=== PATIENT | female | born 1945 | race Caucasian/White ===

== ENCOUNTER → 2016-04-29 | Outpatient (CLI) | payer BC, MEDICARE ==
[~2016-04-29] MED LIST: ATEN1TAB38 PO; DULO60CA PO; ESCI20TA PO; EST0625T PO; FENT25DI2 TD; GABA-494 PO; LANS15CA21 PO; LIDO5DIS21 TOP; LISI40TA PO; LORA-655 PO; PERCOT PO; TRIA37.561 PO
[2016-04-29 14:40] VITALS: BP 148/67
[2016-04-29 15:10] VITALS: BP 147/71
== END | disposition home or self-care (01) ==
LOC: Rad HDHVI 14:21
PROVIDERS: ATTEND Internal Medicine Cardiovascular Disease
DX: Z01.818 Encounter for other preprocedural examination (principal); I11.0 Hypertensive heart disease with heart failure; I50.9 Heart failure, unspecified; I70.0 Atherosclerosis of aorta; M43.26 Fusion of spine, lumbar region; M19.011 Primary osteoarthritis, right shoulder; E66.8 Other obesity; Z98.84 Bariatric surgery status
CPT/HCPCS: 71020; 93005; G0463

== ENCOUNTER → 2016-12-30 | Outpatient (CLI) | payer OTHER, MEDICARE | END | disposition home or self-care (01) | LOC: Rad HDHVI 12:53 | PROVIDERS: ATTEND Internal Medicine Cardiovascular Disease | DX: I36.1 Nonrheumatic tricuspid (valve) insufficiency (principal); I51.7 Cardiomegaly | CPT/HCPCS: 93306; 93880 ==

== ENCOUNTER → 2018-07-01 | Outpatient (CLI) | payer MEDICARE, BC ==
[~2018-07-01] MED LIST changes: -GABA-494 PO; +GABA100C9 PO; +READI-CAT 2 (BARIUM SULF)(VANILLA SMOOTHIE) 450ML ONE
[2018-07-01 12:00] LABS: Urine Blood Negative /uL (Negative); Urine Specific Gravity 1.017 (1.001-1.035)
[2018-07-01 12:10] LABS: Basophils # (auto) 0.1 uL; Basophils % (auto) 0.5 % (0.0-2.0); Eosinophils # (auto) 0.1 uL; Eosinophils % (auto) 0.5 % (0.0-7.0); Hematocrit 38.1 % (36.0-46.0); Hemoglobin 12.8 g/dL (12.2-16.2); Lymphocytes # (auto) 2.2 uL; Lymphocytes % (auto) 21.2 % (10.0-50.0); Mean Corpuscular Hemoglobin 30.3 pg (28.0-32.0); Mean Corpuscular Hgb Conc. 33.5 g/dL (32.0-36.0); Mean Corpuscular Volume 90.4 fL (80.0-100.0); Monocytes # (auto) 0.6 uL; Monocytes % (auto) 5.3 % (0.0-12.0); Neutrophils # (auto) 7.5 uL; Neutrophils % (auto) 72.5 % (37.0-80.0); Nucleated Red Blood Cells % 0.1 %; Platelet Count (auto) 376 10^3/uL (140-450); Red Blood Cells 4.22 10^6/uL (4.0-5.20); Red Cell Distribution Width 14.1 % (11.8-14.3); White Blood Cell 10.3 10^3/uL (4.4-10.8)
[2018-07-01 12:23] LABS: Albumin 3.6 g/dL (3.4-5.0); Free T4 (Free Thyroxine) 0.87 ng/dL (0.89-1.76); Potassium 4.4 mmol/L (3.5-5.1)
[2018-07-01 12:28] LABS: BUN/Creatinine Ratio 23.1; Bilirubin, Total 0.3 mg/dL (0.2-1.0); Total Protein 7.3 g/dL (6.4-8.2)
== END | disposition home or self-care (01) ==
LOC: Rad HDHVI 08:15
PROVIDERS: ATTEND Internal Medicine Cardiovascular Disease
DX: I08.1 Rheumatic disorders of both mitral and tricuspid valves (principal); K57.30 Diverticulosis of large intestine without perforation or abscess without bleeding; N39.0 Urinary tract infection, site not specified; E03.9 Hypothyroidism, unspecified; E55.9 Vitamin D deficiency, unspecified; D51.9 Vitamin B12 deficiency anemia, unspecified; R06.02 Shortness of breath; I11.0 Hypertensive heart disease with heart failure; I50.9 Heart failure, unspecified; K46.9 Unspecified abdominal hernia without obstruction or gangrene; Z90.49 Acquired absence of other specified parts of digestive tract; Z79.899 Other long term (current) drug therapy
CPT/HCPCS: 36415; 74176; 80053; 80061; 81003; 82306; 82607; 83036; 84439; 84443; 85025; 93306

== ENCOUNTER → 2018-07-08 | Outpatient (CLI) | payer MEDICARE, BC ==
[~2018-07-08] VITALS: Ht 152.4 cm; Wt 97.5 kg
[~2018-07-08] MED LIST changes: +ADENOSINE 82 MG in GIVE UN-DILUTED 0 ML IV ONE; +ADENOSINE 90 MG/30 ML INJ IV ONE; -READI-CAT 2 (BARIUM SULF)(VANILLA SMOOTHIE) 450ML ONE
== END | disposition home or self-care (01) ==
LOC: Rad HDHVI 13:58
PROVIDERS: ATTEND Internal Medicine Cardiovascular Disease
DX: K57.92 Diverticulitis of intestine, part unspecified, without perforation or abscess without bleeding (principal); I11.0 Hypertensive heart disease with heart failure; I50.9 Heart failure, unspecified; R53.83 Other fatigue; R06.02 Shortness of breath; F32.9 Major depressive disorder, single episode, unspecified; E66.01 Morbid (severe) obesity due to excess calories
CPT/HCPCS: 78452; 93005; 96374; 96375; A9500; J0153

== ENCOUNTER → 2018-10-27 | Outpatient (CLI) | payer MEDICARE, BC ==
[~2018-10-27] MED LIST changes: -ADENOSINE 82 MG in GIVE UN-DILUTED 0 ML IV ONE; -ADENOSINE 90 MG/30 ML INJ IV ONE
[2018-10-27 10:00] VITALS: BP 135/61
[2018-10-27 10:23] VITALS: BP 126/57
--- NOTE | 2018-10-27 10:23 | NUR ---
IN FOR PRE-OP CLEARANCE FOR OCCUPLASTIC PROCEDURE AT OUTSIDE FACILITY ON 11/02/18. Pre-Op Discharge Summary: See e-MAR for any medications given for this visit. Pre-op orders received and carried out per MD of EKG, LABS and chest xrays. Patient given a copy of EKG with instructions to GO TO PRE -OP SURGEON for further follow up care.
[2018-10-27 12:04] LABS: Basophils # (auto) 0.1 uL; Basophils % (auto) 0.7 % (0.0-2.0); Eosinophils # (auto) 0.4 uL; Eosinophils % (auto) 3.9 % (0.0-7.0); Hematocrit 40.1 % (36.0-46.0); Hemoglobin 13.3 g/dL (12.2-16.2); Lymphocytes # (auto) 3.2 uL; Lymphocytes % (auto) 32.7 % (10.0-50.0); Mean Corpuscular Hemoglobin 29.9 pg (28.0-32.0); Mean Corpuscular Hgb Conc. 33.1 g/dL (32.0-36.0); Mean Corpuscular Volume 90.5 fL (80.0-100.0); Monocytes # (auto) 0.7 uL; Monocytes % (auto) 7.5 % (0.0-12.0); Neutrophils # (auto) 5.4 uL; Neutrophils % (auto) 55.2 % (37.0-80.0); Platelet Count (auto) 330 10^3/uL (140-450); Red Blood Cells 4.44 10^6/uL (4.0-5.20); Red Cell Distribution Width 13.8 % (11.8-14.3); White Blood Cell 9.7 10^3/uL (4.4-10.8)
[2018-10-27 12:37] LABS: INR 0.95 (0.9-1.15); Partial Thromboplastin Time 20.6 sec (23.64-32.05)
[2018-10-27 12:44] LABS: BUN/Creatinine Ratio 17.1; Calcium 9.4 mg/dL (8.5-10.1); Potassium 4.3 mmol/L (3.5-5.1)
== END | disposition home or self-care (01) ==
LOC: LAB 09:34
PROVIDERS: ATTEND Internal Medicine Cardiovascular Disease
DX: Z01.812 Encounter for preprocedural laboratory examination (principal); D64.9 Anemia, unspecified; R79.1 Abnormal coagulation profile; I11.0 Hypertensive heart disease with heart failure; I50.9 Heart failure, unspecified
CPT/HCPCS: 36415; 80048; 85025; 85610; 85730; 93005; G0463

== ENCOUNTER → 2019-04-17 | Outpatient (CLI) | payer MEDICARE, BC ==
[2019-04-17 16:14] LABS: Basophils # (auto) 0 uL; Basophils % (auto) 0.5 % (0.0-2.0); Eosinophils # (auto) 0.2 uL; Eosinophils % (auto) 2.4 % (0.0-7.0); Hematocrit 38.4 % (36.0-46.0); Hemoglobin 12.5 g/dL (12.2-16.2); Lymphocytes # (auto) 2.5 uL; Lymphocytes % (auto) 26.9 % (10.0-50.0); Mean Corpuscular Hemoglobin 29.8 pg (28.0-32.0); Mean Corpuscular Hgb Conc. 32.6 g/dL (32.0-36.0); Mean Corpuscular Volume 91.2 fL (80.0-100.0); Monocytes # (auto) 0.8 uL; Monocytes % (auto) 8.8 % (0.0-12.0); Neutrophils # (auto) 5.7 uL; Neutrophils % (auto) 61.4 % (37.0-80.0); Platelet Count (auto) 331 10^3/uL (140-450); Red Blood Cells 4.21 10^6/uL (4.0-5.20); Red Cell Distribution Width 13.9 % (11.8-14.3); White Blood Cell 9.3 10^3/uL (4.4-10.8)
[2019-04-17 16:27] LABS: INR 1.02 (0.9-1.15); Partial Thromboplastin Time 26.1 sec (23.64-32.05)
== END | disposition home or self-care (01) ==
LOC: LAB 13:47
PROVIDERS: ATTEND Internal Medicine Cardiovascular Disease
DX: Z01.812 Encounter for preprocedural laboratory examination (principal); D64.9 Anemia, unspecified; R79.1 Abnormal coagulation profile; I10 Essential (primary) hypertension
CPT/HCPCS: 36415; 85025; 85610; 85730

== ENCOUNTER → 2019-07-18 | Outpatient (CLI) | payer MEDICARE, BC | END | disposition home or self-care (01) | LOC: LAB 14:17 | PROVIDERS: ATTEND Internal Medicine Cardiovascular Disease | DX: M32.10 Systemic lupus erythematosus, organ or system involvement unspecified (principal) | CPT/HCPCS: 86225; 86235 ==

== ENCOUNTER → 2019-12-04 | Outpatient (CLI) | payer MEDICARE, BC ==
[~2019-12-04] MED LIST changes: -LISI40TA PO; +LISI40TA11 PO
[2019-12-04 16:11] LABS: Albumin 3.4 g/dL (3.4-5.0); Calcium 9.4 mg/dL (8.5-10.1); Potassium 4.4 mmol/L (3.5-5.1)
[2019-12-04 16:14] LABS: Basophils # (auto) 0 10 ^3/uL (0-0.2); Basophils % (auto) 0.5 % (0.0-2.0); Eosinophils # (auto) 0.3 10 ^3/uL (0-0.8); Hematocrit 35.7 % (36.0-46.0); Hemoglobin 11.8 g/dL (12.2-16.2); Lymphocytes # (auto) 1.9 10 ^3/uL (0.4-5.4); Lymphocytes % (auto) 22.2 % (10.0-50.0); Mean Corpuscular Hemoglobin 30.2 pg (28.0-32.0); Mean Corpuscular Hgb Conc. 33.1 g/dL (32.0-36.0); Mean Corpuscular Volume 91.2 fL (80.0-100.0); Monocytes # (auto) 0.7 10 ^3/uL (0-1.3); Monocytes % (auto) 8.1 % (0.0-12.0); Neutrophils # (auto) 5.7 10 ^3/uL (1.6-8.6); Neutrophils % (auto) 66.2 % (37.0-80.0); Platelet Count (auto) 331 10^3/uL (140-450); Red Blood Cells 3.92 10^6/uL (4.0-5.20); Red Cell Distribution Width 13.9 % (11.8-14.3); White Blood Cell 8.6 10^3/uL (4.4-10.8)
[2019-12-04 16:15] LABS: Bilirubin, Total 0.3 mg/dL (0.2-1.0); Total Protein 7.1 g/dL (6.4-8.2)
== END | disposition home or self-care (01) ==
LOC: LAB 14:28
PROVIDERS: ATTEND Internal Medicine Cardiovascular Disease
DX: M06.9 Rheumatoid arthritis, unspecified (principal)
CPT/HCPCS: 36415; 80053; 85025

== ENCOUNTER → 2020-07-30 | Outpatient (CLI) | payer MEDICARE, BC ==
[~2020-07-30] MED LIST changes: -LANS15CA21 PO; +LANS15CA37 PO
== END | disposition home or self-care (01) ==
LOC: LAB 11:38
PROVIDERS: ATTEND Internal Medicine
DX: N39.0 Urinary tract infection, site not specified (principal)
CPT/HCPCS: 87086

== ENCOUNTER → 2020-09-12 | Outpatient (CLI) | payer MEDICARE, BC ==
[2020-09-12 11:56] LABS: Basophils # (auto) 0 10 ^3/uL (0-0.2); Basophils % (auto) 0.5 % (0.0-2.0); Eosinophils # (auto) 0.3 10 ^3/uL (0-0.8); Eosinophils % (auto) 2.8 % (0.0-7.0); Hematocrit 36.9 % (36.0-46.0); Hemoglobin 12.2 g/dL (12.2-16.2); Lymphocytes # (auto) 2.7 10 ^3/uL (0.4-5.4); Lymphocytes % (auto) 30.5 % (10.0-50.0); Mean Corpuscular Volume 91.1 fL (80.0-100.0); Monocytes # (auto) 0.6 10 ^3/uL (0-1.3); Monocytes % (auto) 6.6 % (0.0-12.0); Neutrophils # (auto) 5.3 10 ^3/uL (1.6-8.6); Neutrophils % (auto) 59.6 % (37.0-80.0); Nucleated Red Blood Cells % 0.1 %; Platelet Count (auto) 292 10^3/uL (140-450); Red Blood Cells 4.05 10^6/uL (4.0-5.20); Red Cell Distribution Width 13.8 % (11.8-14.3); White Blood Cell 8.9 10^3/uL (4.4-10.8)
[2020-09-12 12:02] LABS: Albumin 3.4 g/dL (3.4-5.0); Calcium 9.2 mg/dL (8.5-10.1); Potassium 4.1 mmol/L (3.5-5.1)
[2020-09-12 12:06] LABS: Urine Blood Negative /uL (Negative); Urine Specific Gravity 1.017 (1.001-1.035)
[2020-09-12 12:07] LABS: BUN/Creatinine Ratio 26.2; Bilirubin, Total 0.5 mg/dL (0.2-1.0)
[2020-09-12 12:20] LABS: Free T4 (Free Thyroxine) 1.03 ng/dL (0.89-1.76)
== END | disposition home or self-care (01) ==
LOC: CHF HDHVI 08:01
PROVIDERS: ATTEND Internal Medicine Cardiovascular Disease
DX: D51.3 Other dietary vitamin B12 deficiency anemia (principal); I10 Essential (primary) hypertension; E11.9 Type 2 diabetes mellitus without complications; E55.9 Vitamin D deficiency, unspecified; D64.9 Anemia, unspecified; R00.2 Palpitations; R53.1 Weakness; R30.0 Dysuria
CPT/HCPCS: 36415; 80053; 80061; 81003; 82306; 82607; 83036; 84439; 84443; 85025; 85049

== ENCOUNTER → 2020-09-16 | Outpatient (CLI) | payer MEDICARE, BC | END | disposition home or self-care (01) | LOC: Rad HDHVI 15:19 | PROVIDERS: ATTEND Internal Medicine Cardiovascular Disease | DX: I11.9 Hypertensive heart disease without heart failure (principal) | CPT/HCPCS: 93306 ==

== ENCOUNTER → 2020-09-23 | Outpatient (CLI) | payer MEDICARE, BC ==
[~2020-09-23] VITALS: Ht 152.4 cm; Wt 93.9 kg
[~2020-09-23] MED LIST changes: +ADENOSINE 79 MG in GIVE UN-DILUTED 0 ML IV ONE; +ADENOSINE 90 MG/30 ML INJ IV ONE
== END | disposition home or self-care (01) ==
LOC: Rad HDHVI 13:52
PROVIDERS: ATTEND Internal Medicine Cardiovascular Disease
DX: Z01.810 Encounter for preprocedural cardiovascular examination (principal); I10 Essential (primary) hypertension; E78.5 Hyperlipidemia, unspecified; J44.9 Chronic obstructive pulmonary disease, unspecified
CPT/HCPCS: 78452; 93005; 96374; 96375; A9500; J0153

== ENCOUNTER → 2020-09-27 | Outpatient (CLI) | payer MEDICARE, BC ==
[~2020-09-27] MED LIST changes: -ADENOSINE 79 MG in GIVE UN-DILUTED 0 ML IV ONE; -ADENOSINE 90 MG/30 ML INJ IV ONE
== END | disposition home or self-care (01) ==
LOC: Rad HDHVI 14:53
PROVIDERS: ATTEND Internal Medicine Cardiovascular Disease
DX: I10 Essential (primary) hypertension (principal); E78.5 Hyperlipidemia, unspecified
CPT/HCPCS: 93880

== ENCOUNTER → 2021-03-10 | Outpatient (CLI) | payer MEDICARE, BC | END | disposition home or self-care (01) | LOC: Rad HDHVI 14:12 | PROVIDERS: ATTEND Internal Medicine Cardiovascular Disease | DX: M47.815 Spondylosis without myelopathy or radiculopathy, thoracolumbar region (principal); M48.07 Spinal stenosis, lumbosacral region; M43.26 Fusion of spine, lumbar region; M48.8X7 Other specified spondylopathies, lumbosacral region; M43.17 Spondylolisthesis, lumbosacral region; M12.88 Other specific arthropathies, not elsewhere classified, other specified site | CPT/HCPCS: 72131 ==

== ENCOUNTER → 2021-04-07 | Outpatient (CLI) | payer MEDICARE, BC ==
[2021-04-07 11:08] LABS: Basophils # (auto) 0.1 10 ^3/uL (0-0.2); Eosinophils # (auto) 0.3 10 ^3/uL (0-0.8); Eosinophils % (auto) 3.3 % (0.0-7.0); Hemoglobin 13.5 g/dL (12.2-16.2); Lymphocytes # (auto) 2.2 10 ^3/uL (0.4-5.4); Mean Corpuscular Hemoglobin 30.1 pg (28.0-32.0); Mean Corpuscular Hgb Conc. 32.9 g/dL (32.0-36.0); Mean Corpuscular Volume 91.7 fL (80.0-100.0); Monocytes # (auto) 0.8 10 ^3/uL (0-1.3); Monocytes % (auto) 8.1 % (0.0-12.0); Neutrophils # (auto) 5.9 10 ^3/uL (1.6-8.6); Neutrophils % (auto) 63.6 % (37.0-80.0); Red Blood Cells 4.47 10^6/uL (4.0-5.20); Red Cell Distribution Width 13.6 % (11.8-14.3); White Blood Cell 9.3 10^3/uL (4.4-10.8)
[2021-04-07 11:09] LABS: Urine Blood Negative /uL (Negative); Urine Specific Gravity 1.012 (1.001-1.035)
[2021-04-07 11:19] LABS: Albumin 3.4 g/dL (3.4-5.0); Calcium 9.5 mg/dL (8.5-10.1)
[2021-04-07 11:30] LABS: BUN/Creatinine Ratio 18.1; Bilirubin, Total 0.4 mg/dL (0.2-1.0); Total Protein 7.4 g/dL (6.4-8.2)
== END | disposition home or self-care (01) ==
LOC: LAB 09:02
PROVIDERS: ATTEND Internal Medicine Cardiovascular Disease
DX: E11.9 Type 2 diabetes mellitus without complications (principal); D51.3 Other dietary vitamin B12 deficiency anemia; D64.9 Anemia, unspecified; E55.9 Vitamin D deficiency, unspecified; I10 Essential (primary) hypertension; R00.2 Palpitations; R53.1 Weakness; R30.0 Dysuria
CPT/HCPCS: 36415; 80053; 80061; 81003; 82306; 82607; 83036; 84439; 84443; 85025

== ENCOUNTER → 2021-10-06 | Outpatient (CLI) | payer MEDICARE, BC ==
[~2021-10-06] MED LIST changes: +READI-CAT 2 (BARIUM SULF)(VANILLA SMOOTHIE) 450ML ONE
== END | disposition home or self-care (01) ==
LOC: Rad HDHVI 10:07
PROVIDERS: ATTEND Internal Medicine Cardiovascular Disease
DX: R07.89 Other chest pain (principal)
CPT/HCPCS: 93880

== ENCOUNTER → 2021-11-04 | Outpatient (CLI) | payer MEDICARE, BC ==
[~2021-11-04] MED LIST changes: -READI-CAT 2 (BARIUM SULF)(VANILLA SMOOTHIE) 450ML ONE
== END | disposition home or self-care (01) ==
LOC: Rad HDHVI 08:19
PROVIDERS: ATTEND Internal Medicine Cardiovascular Disease
DX: I34.0 Nonrheumatic mitral (valve) insufficiency (principal); I10 Essential (primary) hypertension; R42 Dizziness and giddiness
CPT/HCPCS: 93306

== ENCOUNTER → 2022-12-11 | Outpatient (CLI) | payer BC, MEDICARE, OTHER ==
[~2022-12-11] MED LIST changes: -DULO60CA PO; +DULO60CA41 PO; +GABA-1308 PO; -GABA100C9 PO; -LISI40TA11 PO; +LISI40TA16 PO
== END | disposition home or self-care (01) ==
LOC: Rad HDHVI 10:06
PROVIDERS: ATTEND Internal Medicine Cardiovascular Disease
DX: M51.36 Other intervertebral disc degeneration, lumbar region (principal); M48.061 Spinal stenosis, lumbar region without neurogenic claudication; M85.88 Other specified disorders of bone density and structure, other site; R06.02 Shortness of breath; I10 Essential (primary) hypertension; Z96.652 Presence of left artificial knee joint
CPT/HCPCS: 72131; 73562; 93306

== ENCOUNTER → 2022-12-14 | Outpatient (CLI) | payer OTHER ==
[~2022-12-14] VITALS: Ht 152.4 cm; Wt 95.3 kg
[~2022-12-14] MED LIST changes: +ADENOSINE 80 MG in GIVE UN-DILUTED 0 ML IV ONE; +ADENOSINE 90 MG/30 ML INJ IV ONE
== END | disposition home or self-care (01) ==
LOC: Rad HDHVI 14:13
PROVIDERS: ATTEND Internal Medicine Cardiovascular Disease
DX: R06.02 Shortness of breath (principal); I10 Essential (primary) hypertension; E78.00 Pure hypercholesterolemia, unspecified; Z82.49 Family history of ischemic heart disease and other diseases of the circulatory system
CPT/HCPCS: 78452; 93005; 96374; 96375; A9500; J0153

== ENCOUNTER → 2023-02-01 | Outpatient (CLI) | payer OTHER ==
[~2023-02-01] MED LIST changes: -ADENOSINE 80 MG in GIVE UN-DILUTED 0 ML IV ONE; -ADENOSINE 90 MG/30 ML INJ IV ONE
== END | disposition home or self-care (01) ==
LOC: Rad HDHVI 15:59
PROVIDERS: ATTEND Internal Medicine Cardiovascular Disease
DX: I10 Essential (primary) hypertension (principal)
CPT/HCPCS: 93880

== ENCOUNTER 2024-01-04 04:35 | Inpatient (IN) | payer MEDICARE, OTHER ==
[~2024-01-04] VITALS: Ht 152.4 cm; Wt 62.9 kg
--- NOTE | 2024-01-04 06:33 | ED.PDOC ---
Musculoskeletal HPI Comments 78 year old with hx of RA and anxiety presents for pain control PCP: Dr. Thompson Sees pain management with no improvement. Tried Percocet and fentanyl with no improvement Pain is located to bilateral shoulders. reports hx of OA. Also c/o of left knee pain Had both knees replaced 2012. Pain rated as severe Denies trauma to the knee or recent fall Denies skin color changes around the knee Denies masses around the knee Denies popping/locking/giving out of the knee Denies fever chills night sweats nausea vomiting Denies previous surgeries to the knee nor significant injury RAFY WESTON Sold: 01/01/2024 Filled: 01/01/2024 LORAZEPAM Refill 2 of 2 1 MG TAB Days: 30 Qty: 90 Daily: N/A Total: N/A JAYSON SOLORZANO THU: [id number] [facility] Pharmacy #: [id number] Serialized Rx: NOT REPORTED Pharmacy Rx: [id number] RAFY WESTON Sold: 12/17/2023 Filled: 12/17/2023 OXYCODONE HYDROCHLORIDE, ACETAMINOPHEN Refill 0 of 0 10-325 MG TAB Days: 30 Qty: 120 Daily: 60.0 Total: 1800.0 VIRA COREA NP THU: [id number] [facility] Pharmacy #: [id number] Serialized Rx: NOT REPORTED Pharmacy Rx: [id number] Chief Complaint: Lower Extremity Time Seen by MD: 06:22 Primary Care Provider: JAYSON Reviewed Notes: Nurses Notes, Medications, Allergies Allergies: Coded Allergies: NO KNOWN ALLERGIES (Unverified , 07/03/12) Home Meds Reported Medications Gabapentin (Gabapentin) 100 Mg Cap, 1 CAP PO TID, #90 CAP 2 Refills 02/08/16 Duloxetine Hcl (Cymbalta) 60 Mg Cap, 1 CAP PO DAILY, #90 CAP 3 Refills 02/08/16 Escitalopram Oxalate (Lexapro) 20 Mg Tab, 1 TAB PO DAILY, #90 TAB 3 Refills 02/08/16 Lansoprazole (Prevacid) 15 Mg Cap, 30 MG PO DAILY, CAP 02/08/16 Lorazepam (Ativan) 0.5 Mg Tab, 1 MG PO TID, TAB 02/08/16 Hydrochlorothiazide W/Triamter (Dyazide) 1 Cap Cap, 25 CAP PO DAILY, #30 CAP 3 Refills 02/08/16 Lisinopril (Lisinopril) 40 Mg Tab, 1 TAB PO DAILY, #30 TAB 5 Refills 02/08/16 Lidocaine (LIDODERM 5% TOPICAL PATCH) 1 Patch Ph, 1 PATCH TOP DAILY, #30 PATCH 1 Refill 02/07/16 Fentanyl (Fentanyl) 25 Mcg/Hr Dis, 25 MCG TD Q72 PRN for MILD PAIN OR TEMP>100.4, DIS 02/07/16 Estrogens, Conjugated (PREMARIN TABLET) 0.625 Mg Tb, 1 TAB PO DAILY, #30 TAB 11 Refills 02/06/16 Lansoprazole (Prevacid) 15 Mg Cap, 30 MG PO DAILY, CAP 02/06/16 Oxycodone W/ Acetaminophen (Percocet 5/325MG) 1 Tab Tb, 2 TAB PO Q6HP PRN for MILD PAIN OR TEMP>100.4, #120 TAB 02/06/16 Atenolol (Tenormin) 25 Mg Tb, 1 TAB PO DAILY 07/03/12 Information Source: Patient Mode of Arrival: Wheelchair Past Medical History PAST MEDICAL HISTORY: Anxiety, Arthritis, Depression, GERD, HTN, Thyroid [employer]ET [employer]AND[employer] History: No Pertinent CABINET [employer]AND[employer]ER History Family History Family History: Unobtainable Social History Smoker: Non-Smoker Alcohol: Rarely Drugs: Denies Drug Use Lives In: Home All Other Systems: Reviewed and Negative (Per HPI) Physical Exam General Appearance: No Apparent Distress, Normal HEENT: Normal ENT Inspection, Pharynx Normal, TMs Normal Neck: Full Range of Motion, Non-Tender, Normal, Normal Inspection Respiratory: Chest Non-Tender, Lungs Clear, No Accessory Muscle Use, No Respiratory Distress, Normal Breath Sounds Cardiovascular: No Edema, No JVD, No Murmur, No Gallop, Normal Peripheral Pulses, Regular Rate/Rhythm Breast Exam: Deferred Gastrointestinal: No Organomegaly, Non Tender, No Pulsatile Mass, Normal Bowel Sounds, Soft Genitalia: Deferred Pelvic: Deferred Rectal: Deferred Extremities: No calf tenderness, Normal capillary refill, Normal inspection, Normal range of motion, Non-tender, No pedal edema Musculoskeletal : Apperance: Normal Neurologic: Alert, glost tile sorter II-XII nml as Tested, No Motor Deficits, Normal Affect, Normal Mood, No Sensory Deficits Cerebellar Function: Normal Reflexes: Normal Skin: Dry, Normal Color, Warm Lymphatic: No Adenopathy Was a procedure done? Was a procedure done?: No Differential Diagnosis EXT Differential Diagnosis: Sprain, Dislocation, Arthritis, Other X-Ray, Labs, Meds, VS Vital Signs Date Time Temp Pulse Resp B/P (MAP) Pulse Ox O2 Delivery O2 Flow Rate FiO2 01/04/24 06:29 98.3 84 18 122/61 (81) 98 98.3 01/04/24 06:29 84 18 98 Room Air 01/04/24 04:50 98.1 89 18 125/59 (81) 97 Lab Test 01/04/24 07:13 01/04/24 06:40 Range/Units White Blood Count 13.6 H 4.4-10.8 10^3/uL Red Blood Count 4.66 4.0-5.20 10^6/uL Hemoglobin 14.2 12.2-16.2 g/dL Hematocrit 42.7 36.0-46.0 % Mean Corpuscular Volume 91.6 80.0-100.0 fL Mean Corpuscular Hemoglobin 30.4 28.0-32.0 pg Mean Corpuscular Hemoglobin Concent 33.2 32.0-36.0 g/dL Red Cell Distribution Width 14.4 H 11.8-14.3 % Platelet Count 407 140-450 10^3/uL Mean Platelet Volume 8.2 6.9-10.8 fL Neutrophils (%) (Auto) 64.4 37.0-80.0 % Lymphocytes (%) (Auto) 26.7 10.0-50.0 % Monocytes (%) (Auto) 6.9 0.0-12.0 % Eosinophils (%) (Auto) 1.7 0.0-7.0 % Basophils (%) (Auto) 0.3 0.0-2.0 % Neutrophils # (Auto) 8.7 H 1.6-8.6 10 ^3/uL Lymphocytes # (Auto) 3.6 0.4-5.4 10 ^3/uL Monocytes # (Auto) 0.9 0-1.3 10 ^3/uL Eosinophils # (Auto) 0.2 0-0.8 10 ^3/uL Basophils # (Auto) 0 0-0.2 10 ^3/uL Nucleated Red Blood Cells 0.1 % Sodium Level 134 L 136-145 mmol/L Potassium Level 4.4 3.5-5.1 mmol/L Chloride Level 102 98-107 mmol/L Carbon Dioxide Level 25 20-31 mmol/L Anion Gap 7 5-15 Blood Urea Nitrogen 24 H 9-23 mg/dL Creatinine 1.11 H 0.550-1.02 mg/dL Glomerular Filtration Rate Calc 51 >90 mL/min BUN/Creatinine Ratio 21.6 H 10.0-20.0 Serum Glucose 108 H 74-106 mg/dL Calcium Level 10.3 8.7-10.4 mg/dL Urine Color Colorless Yellow Urine Clarity Clear Clear Urine pH 5.0 5.0-9.0 Urine Specific Reynolds 1.009 1.001-1.035 Urine Protein Negative Negative Urine Ketones Negative Negative Urine Blood Negative Negative /uL Urine Nitrite Negative Negative Urine Bilirubin Negative Negative Urine Urobilinogen Normal Negative mg/dL Urine Leukocyte Esterase Negative Negative /uL Urine RBC 1 0 - 4 /hpf Urine WBC 2 0 - 5 /hpf Urine Squamous Epithelial Cells Few <5 /hpf Urine Bacteria None seen None Seen /hpf Urine Hyaline Casts Few 0 - 2 /lpf Urine Glucose Normal Normal mg/dL PATIENT: WESTON HILLMAN SACCT: [id number]: [id number] : 1945 LOC: ER ROOM / BED: / AGE / SEX: 78 / F ADM STATUS: REG ER SERVICE 0640 ORDERING PHYSICIAN: SRIDEVI EDMOND NP PROCEDURE(s): LKNE3 - L KNEE 3V XRAY REASON: Pain ORDER NUMBER(s): [id number], ACCESSION NUMBER(s): [id number] LEFT KNEE RADIOGRAPHS CLINICAL HISTORY: Pain Left knee joint pain TECHNIQUE: AP, lateral, oblique and sunrise views of the left knee. Comparison: XY L KNEE 3V XRAY on DOS: 12/11/22 FINDINGS: There is left knee arthroplasty. The tibial and femoral hardware components appear intact without evidence of hardware loosening. The alignment is anatomic. Soft tissues appear within normal limits. IMPRESSION: 1. Uncomplicated appearance of left knee arthroplasty. HS:Y ATED BY: CAL FRANKLIN MD DICTATED DATE/TIME: 01/04/24755 SIGNED BY: CAL FRANKLIN MD SIGNED DATE/TIME: 01/04/24755 CC: PATIENT: WESTON HILLMAN ACCT: [id number] UNIT: [id number] : 1945 LOC: ER ROOM / BED: / AGE / SEX: 78 / F ADM STATUS: REG ER SERVICE 7 ORDERING PHYSICIAN: SRIDEVI EDMOND NP PROCEDURE(s): LSHD2 - L SHOULDER 2+ VIEW XRAY REASON: Pain ORDER NUMBER(s): [id number], ACCESSION NUMBER(s): [id number] Right SHOULDER RADIOGRAPHS CLINICAL HISTORY: Pain RightLeft shoulder joint pain. TECHNIQUE: AP, lateral and oblique views of the right shoulder were obtained. COMPARISON: None FINDINGS/IMPRESSION: 1. There is no evidence of an acute fracture or dislocation. The alignment is anatomic. There are advanced left glenohumeral joint degenerative changes with joint space loss and marginal osteophytosis. The visualized right lung is clear. The soft tissues appear within normal limits.. HS:Y ATED BY: CAL FRANKLIN MD DICTATED DATE/TIME: 01/04/24754 SIGNED BY: CAL FRANKLIN MD SIGNED DATE/TIME: 01/04/24754 PATIENT: WESTON HILLMAN ACCT: [id number] UNIT: [id number] : 1945 LOC: ER ROOM / BED: / AGE / SEX: 78 / F ADM STATUS: REG ER SERVICE 7 ORDERING PHYSICIAN: SRIDEVI EDMOND RUNNER OUT PROCEDURE(s): RKN3 - R KNEE 3V XRAY REASON: Pain ORDER NUMBER(s): [id number], ACCESSION NUMBER(s): [id number] PROCEDURE: Right knee radiographs. INDICATION: 78 years old, Female; Pain.. TECHNIQUE: 3 views of the right knee were obtained. COMPARISON: None. FINDINGS: There is a total knee replacement, the components of which are well aligned and well seated. No periprosthetic fracture or periprosthetic lucency. No significant joint effusion or significant soft tissue swelling. IMPRESSION: 1. Status post total knee replacement in satisfactory alignment without evidence of hardware complication or fracture. ATED BY: ELMER NORRIS MD DICTATED DATE/TIME: 01/04/24755 SIGNED BY: ELMER NORRIS MD SIGNED DATE/TIME: 01/04/24755 CC: X-Ray, Labs, Meds, VS Comment We will consult the hospitalist for admission due to intractable pain. Time of 1ST Reevaluation: 08:28 Reevaluation 1ST: Improved Patient Education/Counseling: Diagnosis, Treatment Family Education/Counseling: Diagnosis, Treatment Departure 1 Departure Time of Disposition: 08:31 Impression: Primary Impression: Chronic pain syndrome Additional Impression: ELIJAH (acute kidney injury) Disposition: 09 ADMITTED INPATIENT Condition: Fair Critical Care Note Critical Care Time?: No Stability Stability form required: No Heart Score Heart Score: Heart Score Response (Comments) Value History N/A 0 EKG N/A 0 Age N/A 0 Risk Factors N/A 0 Troponin N/A 0 Total 0 SRIDEVI EDMOND NP Jan 04, 2024 06:33
[2024-01-04 07:18] LABS: Urine Bacteria None Seen /hpf (None Seen)
[2024-01-04 07:38] LABS: Basophils # (auto) 0 10 ^3/uL (0-0.2); Basophils % (auto) 0.3 % (0.0-2.0); Eosinophils # (auto) 0.2 10 ^3/uL (0-0.8); Eosinophils % (auto) 1.7 % (0.0-7.0); Hematocrit 42.7 % (36.0-46.0); Hemoglobin 14.2 g/dL (12.2-16.2); Lymphocytes # (auto) 3.6 10 ^3/uL (0.4-5.4); Lymphocytes % (auto) 26.7 % (10.0-50.0); Mean Corpuscular Hemoglobin 30.4 pg (28.0-32.0); Mean Corpuscular Hgb Conc. 33.2 g/dL (32.0-36.0); Mean Corpuscular Volume 91.6 fL (80.0-100.0); Monocytes # (auto) 0.9 10 ^3/uL (0-1.3); Monocytes % (auto) 6.9 % (0.0-12.0); Neutrophils # (auto) 8.7 10 ^3/uL (1.6-8.6); Neutrophils % (auto) 64.4 % (37.0-80.0); Nucleated Red Blood Cells % 0.1 %; Platelet Count (auto) 407 10^3/uL (140-450); Red Blood Cells 4.66 10^6/uL (4.0-5.20); Red Cell Distribution Width 14.4 % (11.8-14.3); White Blood Cell 13.6 10^3/uL (4.4-10.8)
[2024-01-04 07:43] LABS: Chloride 102 mmol/L (98-107); Potassium 4.4 mmol/L (3.5-5.1); Sodium 134 mmol/L (136-145)
[2024-01-04 07:44] LABS: Anion Gap 7 (5-15); Calcium 10.3 mg/dL (8.7-10.4); Carbon Dioxide 25 mmol/L (20-31)
[2024-01-04 07:49] LABS: BUN/Creatinine Ratio 21.6 (10.0-20.0); Blood Urea Nitrogen 24 mg/dL (9-23); Glucose 108 mg/dL (74-106)
[2024-01-04 07:50] LABS: Urine Blood Negative /uL (Negative); Urine Clarity Clear (Clear); Urine Color Colorless (Yellow); Urine Hyaline Cast FEW /lpf (0 - 2); Urine Protein, UAD Negative (Negative); Urine Specific Gravity 1.009 (1.001-1.035); Urine Urobilinogen Normal (Negative); Urine WBC 2 /hpf (0 - 5)
--- NOTE | 2024-01-04 07:57 | DVH ---
Right SHOULDER RADIOGRAPHS CLINICAL HISTORY: Pain RightLeft shoulder joint pain. TECHNIQUE: AP, lateral and oblique views of the right shoulder were obtained. COMPARISON: None FINDINGS/IMPRESSION: 1. There is no evidence of an acute fracture or dislocation. The alignment is anatomic. There are adv anced left glenohumeral joint degenerative changes with joint space loss and marginal osteophytosis. The visualized right lung is clear. The soft tissues appear within normal limits.. HS:Y
--- NOTE | 2024-01-04 07:57 | DVH ---
LEFT KNEE RADIOGRAPHS CLINICAL HISTORY: Pain Left knee joint pain TECHNIQUE: AP, lateral, oblique and sunrise views of the left knee. Comparison: XY L KNEE 3V XRAY on DOS: 12/11/22 FINDINGS: There is left knee arthroplasty. The tibial and femoral hardware components appear intact without heath dence of hardware loosening. The alignment is anatomic. Soft tissues appear within normal limits. IMPRESSION: 1. Uncomplicated appearance of left knee arthroplasty. HS:Y
--- NOTE | 2024-01-04 07:58 | DVH ---
PROCEDURE: Right knee radiographs. INDICATION: 78 years old, Female; Pain.. TECHNIQUE: 3 views of the right knee were obtained. COMPARISON: None. FINDINGS: There is a total knee replacement, the components of which are well aligned and well seated . No periprosthetic fracture or periprosthetic lucency. No significant joint effusion or significant soft tissue swelling. IMPRESSION: 1. Status post total knee replacement in satisfactory alignment without evidence of hardware complica tion or fracture.
[2024-01-04] MEDS: HYDROcodone-ACET 5/325MG TAB PO ONE (09:19)
--- NOTE | 2024-01-04 09:44 | DVHHP2 ---
Admitting Diagnosis: Chronic pain History of Present Illness 78 year old female patient with hx of RA and anxiety c/o uncontrolled pain. Patient has chronic pain. Patient was seeing pain management but she states her pain medication was not working and that she sought treatment in the emergency room. They did a harry scan on her and had no acute findings. Will observe overnight for 24 hours. Will continue with pain medication. Plan is for discharge tomorrow. While in the emergency department the patient was evaluated by the provider, As per provider: Labs, vital signs, and imagining monitored. Patient will be admitted for further evaluation and treatment. I discussed admission with the patient/family and is in agreement to treatment plan Patient Family History: Patient reports no known family medical history. Allergies: Coded Allergies: NO KNOWN ALLERGIES (Unverified , 07/03/12) Home Meds Reported Medications Gabapentin (Gabapentin) 100 Mg Cap, 1 CAP PO TID, #90 CAP 2 Refills 02/08/16 Duloxetine Hcl (Cymbalta) 60 Mg Cap, 1 CAP PO DAILY, #90 CAP 3 Refills 02/08/16 Escitalopram Oxalate (Lexapro) 20 Mg Tab, 1 TAB PO DAILY, #90 TAB 3 Refills 02/08/16 Lansoprazole (Prevacid) 15 Mg Cap, 30 MG PO DAILY, CAP 16 Lorazepam (Ativan) 0.5 Mg Tab, 1 MG PO TID, TAB 02/08/16 Hydrochlorothiazide W/Triamter (Dyazide) 1 Cap Cap, 25 CAP PO DAILY, #30 CAP 3 Refills 02/08/16 Lisinopril (Lisinopril) 40 Mg Tab, 1 TAB PO DAILY, #30 TAB 5 Refills 02/08/16 Lidocaine (LIDODERM 5% TOPICAL PATCH) 1 Patch Ph, 1 PATCH TOP DAILY, #30 PATCH 1 Refill 02/07/16 Fentanyl (Fentanyl) 25 Mcg/Hr Dis, 25 MCG TD Q72 PRN for MILD PAIN OR TEMP >100.4, DIS 02/07/16 Estrogens, Conjugated (PREMARIN TABLET) 0.625 Mg Tb, 1 TAB PO DAILY, #30 TAB 11 Refills 02/06/16 Lansoprazole (Prevacid) 15 Mg Cap, 30 MG PO DAILY, CAP 02/06/16 Oxycodone W/ Acetaminophen (Percocet 5/325MG) 1 Tab Tb, 2 TAB PO Q6HP PRN for MILD PAIN OR TEMP>100.4, #120 TAB 02/06/16 Atenolol (Tenormin) 25 Mg Tb, 1 TAB PO DAILY 07/03/12 Current Medications Current Medications Medications (Trade) Dose Ordered Sig/Timoteo Route PRN Reason Start Time Stop Time Status Last Admin Acetaminophen/ Hydrocodone Bitart ([place] 5/325MG Tab) 1 tab Q4HP PRN PO MODERATE PAIN (4-6 PAIN SCALE) 01/04/24 09:45 01/04/24 09:55 DC Temazepam (Restoril) 15 mg QHSP PRN PO FOR INSOMNIA 01/04/24 09:45 01/04/24 09:55 DC Ondansetron HCl (Zofran) 4 mg Q4HP PRN IV NAUSEA / VOMITING 01/04/24 09:45 01/04/24 09:55 DC Enoxaparin Sodium (Lovenox) 40 mg DAILY SC 01/04/24 10:00 01/04/24 09:55 DC Morphine Sulfate 2 mg Q4HPRN PRN IV SEVERE PAIN (7-10 PAIN SCALE) 01/04/24 09:45 01/04/24 09:55 DC Nitroglycerin (Ntrostat Sublingual) 0.4 mg Q5MINP PRN SL FOR CHEST PAIN 01/04/24 09:45 01/04/24 09:55 DC Morphine Sulfate 2 mg Q30M PRN IV FOR CHEST PAIN 01/04/24 09:45 01/04/24 09:55 DC Famotidine (Pepcid Tablet) 40 mg DAILY PO 01/04/24 10:00 01/04/24 09:55 DC Ketorolac Tromethamine (Toradol Injection) 30 mg Q6HR IV 01/04/24 12:00 01/04/24 09:55 DC Ondansetron HCl (Zofran) 4 mg Q4HP PRN IV NAUSEA / VOMITING 01/04/24 10:00 Enoxaparin Sodium (Lovenox) 40 mg DAILY SC 01/04/24 10:15 Morphine Sulfate 2 mg Q4HPRN PRN IV SEVERE PAIN (7-10 PAIN SCALE) 01/04/24 10:00 Morphine Sulfate 2 mg Q30M PRN IV FOR CHEST PAIN 01/04/24 10:00 Ketorolac Tromethamine (Toradol Injection) 15 mg Q6HR IV 01/04/24 12:00 01/05/24 18:01 01/04/24 18:06 Acetaminophen/ Hydrocodone Bitart ([place] 5/325MG Tab) 1 tab Q4HP PRN PO MODERATE PAIN (4-6 PAIN SCALE) 01/04/24 10:00 Temazepam (Restoril) 15 mg QHSP PRN PO FOR INSOMNIA 01/04/24 10:00 Nitroglycerin (Ntrostat Sublingual) 0.4 mg Q5MINP PRN SL FOR CHEST PAIN 01/04/24 10:00 Famotidine (Pepcid Tablet) 40 mg DAILY PO 01/04/24 10:15 Atenolol (Tenormin Tablet) 25 mg DAILY PO 01/05/24 10:00 Fentanyl (Duragesic 25mcg/ Hr) 25 mcg Q72HR TD 01/04/24 11:30 Gabapentin (Neurontin Capsule) 100 mg TID PO 01/04/24 14:00 01/04/24 14:52 Lorazepam (Ativan Tablet) 1 mg TID PO 01/04/24 14:00 01/04/24 14:52 Duloxetine HCl (Cymbalta Capsule) 60 mg DAILY PO 01/05/24 10:00 Future Hold Patient Own Medication 1 tab DAILY PO 01/05/24 10:00 Future Hold Patient Own Medication 1 tab DAILY PO 01/05/24 10:00 Patient Own Medication 1 cap DAILY PO 01/05/24 10:00 Lisinopril (Zestril Tablet) 40 mg DAILY PO 01/05/24 10:00 Review of Systems Constitutional: denies chills, denies fever, denies malaise Eyes: denies eye pain, denies vision change ENT: denies ear pain, denies headache, denies nasal congestion, denies painful swallowing, denies voice change Cardiovascular: denies chest pain, denies edema, denies orthopnea, denies palpitations, denies paroxysmal nocturnal dyspnea Respiratory: denies cough, denies shortness of breath Gastrointestinal: denies constipation, denies diarrhea, denies nausea, denies vomiting Genitourinary: denies dysuria, denies frequent urination, denies urethral discharge Musculoskeletal: denies back pain, denies joint pain, denies muscle pain Skin: denies bruising, denies itching, denies rash Neurological: denies focal weakness, denies headache, denies sensory changes Psychiatric: denies anxiety, denies depression Endocrine: denies polydipsia, denies polyuria Hematologic/Lymphatic: denies easy bleeding, denies easy bruising, denies enlarged lymph nodes Allergic/Immunologic: denies allergy, denies hives Vital Signs Vital Signs Date Time Temp Pulse Resp B/P (MAP) Pulse Ox O2 Delivery O2 Flow Rate FiO2 01/04/24 16:54 97.6 69 18 119/56 (77) 94 97.6 01/04/24 09:54 Room Air* 0 21 Physical Exam General Appearance: alert, no distress HEENT: EOMI, PERRLA, normal external inspect of ears, no icterus, no nasal drainage Neck: no carotid bruit, no jugular venous distention (JVD), no lymphadenopathy Chest: normal thorax Respiratory: clear to auscultation, normal air movement Cardiovascular: regular rate and rhythm, no diastolic murmur, no jugular venous distention (JVD), no rub, no systolic murmur Abdominal: soft, no hepatomegaly, no mass, no splenomegaly, no tenderness Genitourinary: grossly normal external Musculoskeletal: no joint tenderness, no swelling Extremities: normal pulses, no calf tenderness, no clubbing, no cyanosis, no edema Skin: no bruising, no jaundice, no rash Neurological: alert, No focal deficit Results Labs Test 01/04/24 07:13 01/04/24 06:40 Range/Units White Blood Count 13.6 H 4.4-10.8 10^3/uL Red Blood Count 4.66 4.0-5.20 10^6/uL Hemoglobin 14.2 12.2-16.2 g/dL Hematocrit 42.7 36.0-46.0 % Mean Corpuscular Volume 91.6 80.0-100.0 fL Mean Corpuscular Hemoglobin 30.4 28.0-32.0 pg Mean Corpuscular Hemoglobin Concent 33.2 32.0-36.0 g/dL Red Cell Distribution Width 14.4 H 11.8-14.3 % Platelet Count 407 140-450 10^3/uL Mean Platelet Volume 8.2 6.9-10.8 fL Neutrophils (%) (Auto) 64.4 37.0-80.0 % Lymphocytes (%) (Auto) 26.7 10.0-50.0 % Monocytes (%) (Auto) 6.9 0.0-12.0 % Eosinophils (%) (Auto) 1.7 0.0-7.0 % Basophils (%) (Auto) 0.3 0.0-2.0 % Neutrophils # (Auto) 8.7 H 1.6-8.6 10 ^3/uL Lymphocytes # (Auto) 3.6 0.4-5.4 10 ^3/uL Monocytes # (Auto) 0.9 0-1.3 10 ^3/uL Eosinophils # (Auto) 0.2 0-0.8 10 ^3/uL Basophils # (Auto) 0 0-0.2 10 ^3/uL Nucleated Red Blood Cells 0.1 % Sodium Level 134 L 136-145 mmol/L Potassium Level 4.4 3.5-5.1 mmol/L Chloride Level 102 98-107 mmol/L Carbon Dioxide Level 25 20-31 mmol/L Anion Gap 7 5-15 Blood Urea Nitrogen 24 H 9-23 mg/dL Creatinine 1.11 H 0.550-1.02 mg/dL Glomerular Filtration Rate Calc 51 >90 mL/min BUN/Creatinine Ratio 21.6 H 10.0-20.0 Serum Glucose 108 H 74-106 mg/dL Calcium Level 10.3 8.7-10.4 mg/dL Urine Color Colorless Yellow Urine Clarity Clear Clear Urine pH 5.0 5.0-9.0 Urine Specific [place] 1.009 1.001-1.035 Urine Protein Negative Negative Urine Ketones Negative Negative Urine Blood Negative Negative /uL Urine Nitrite Negative Negative Urine Bilirubin Negative Negative Urine Urobilinogen Normal Negative mg/dL Urine Leukocyte Esterase Negative Negative /uL Urine RBC 1 0 - 4 /hpf Urine WBC 2 0 - 5 /hpf Urine Squamous Epithelial Cells Few <5 /hpf Urine Bacteria None seen None Seen /hpf Urine Hyaline Casts Few 0 - 2 /lpf Urine Glucose Normal Normal mg/dL Plan 1. Benign essential HTN Monitor, continue home meds 2. Morbid Obesity Monitor 3. Anxiety Monitor, anxiolytics 4. Chronic pain syndrome Monitor, IV Toradol, prn pain meds, DC planning Plan discussed with: Patient, Other KARISEBONILIZ Oshea NP Jan 04, 2024 09:44
[2024-01-04] MEDS ORDERED: MORPHINE SULFATE INJ 2 MG/ml SYRG IV PRN ×3 (09:45→10:00)
[2024-01-04] MEDS ORDERED: TEMAZEPAM 15 MG CAP PO PRN ×2 (09:45→10:00)
[2024-01-04] MEDS ORDERED: NITROGLYCERIN 0.4 MG SL TAB SL PRN ×2 (09:45→10:00)
[2024-01-04] MEDS ORDERED: HYDROcodone-ACET 5/325MG TAB PO PRN (09:45)
[2024-01-04] MEDS ORDERED: ONDANSETRON HCL 4 MG/2 ML VIAL IV PRN ×2 (09:45→10:00)
[2024-01-04 09:54] VITALS: PULSE 104; RESP 16; O2SAT 97
[2024-01-04] MEDS ORDERED: ENOXAPARIN SOD 40 MG/0.4 ML SYRINGE SC SCH (10:00)
[2024-01-04] MEDS ORDERED: FAMOTIDINE 20 MG TAB PO SCH (10:00)
[2024-01-04 10:16] VITALS: BP 136/60; PULSE 73; RESP 16; TEMP 97.8; O2SAT 96
[2024-01-04] MEDS ORDERED: fentaNYL 25MCG/HR 25 MCG/HR PAT TD SCH (11:30)
[2024-01-04] MEDS ORDERED: KETOROLAC TROMETH 30 MG/ML 1ML VIAL IV SCH (12:00)
[2024-01-04 12:49] VITALS: BP 121/55; PULSE 78; RESP 18; TEMP 98.2; O2SAT 96
[2024-01-04] MEDS: GABAPENTIN 100 MG CAP PO SCH (14:52)
[2024-01-04] MEDS: LORazepam 0.5 MG TAB PO SCH (14:52)
[2024-01-04] MEDS: KETOROLAC TROMETH 30 MG/ML 1ML VIAL IV SCH (15:00)
[2024-01-04 16:54] VITALS: BP 119/56; PULSE 69; RESP 18; TEMP 97.6; O2SAT 94
[2024-01-04 20:30] VITALS: PULSE 98; RESP 18; O2SAT 96
[2024-01-05] VITALS (8 sets, daily range): BP systolic 94–157; BP diastolic 28–80; PULSE 64–75; RESP 17–20; TEMP 97.4–98.2; O2SAT 91–98
[2024-01-05] MEDS: MORPHINE SULFATE INJ 2 MG/ml SYRG IV PRN (05:05)
[2024-01-05 05:23] LABS: Basophils # (auto) 0.1 10 ^3/uL (0-0.2); Basophils % (auto) 1.3 % (0.0-2.0); Eosinophils # (auto) 0.3 10 ^3/uL (0-0.8); Eosinophils % (auto) 2.7 % (0.0-7.0); Hemoglobin 12.9 g/dL (12.2-16.2); Lymphocytes # (auto) 3.1 10 ^3/uL (0.4-5.4); Lymphocytes % (auto) 32.5 % (10.0-50.0); Mean Corpuscular Hemoglobin 30.3 pg (28.0-32.0); Mean Corpuscular Volume 91.8 fL (80.0-100.0); Monocytes # (auto) 0.7 10 ^3/uL (0-1.3); Monocytes % (auto) 7.4 % (0.0-12.0); Neutrophils # (auto) 5.4 10 ^3/uL (1.6-8.6); Neutrophils % (auto) 56.1 % (37.0-80.0); Nucleated Red Blood Cells % 0.1 %; Platelet Count (auto) 340 10^3/uL (140-450); Red Blood Cells 4.25 10^6/uL (4.0-5.20); Red Cell Distribution Width 13.9 % (11.8-14.3); White Blood Cell 9.7 10^3/uL (4.4-10.8)
[2024-01-05 05:41] LABS: Albumin 3.8 g/dL (3.2-4.8); Alkaline Phosphatase 97 U/L (46-116); Anion Gap 7 (5-15); Aspartate Aminotransferase 12 U/L (13-40); BUN/Creatinine Ratio 25.7 (10.0-20.0); Bilirubin, Total 0.4 mg/dL (0.2-1.0); Blood Urea Nitrogen 26 mg/dL (9-23); Calcium 9.7 mg/dL (8.7-10.4); Carbon Dioxide 27 mmol/L (20-31); Chloride 101 mmol/L (98-107); Glucose 96 mg/dL (74-106); Potassium 4.5 mmol/L (3.5-5.1); Sodium 135 mmol/L (136-145); Total Protein 6.6 g/dL (5.7-8.2)
[2024-01-05 05:53] LABS: Alanine Aminotransferase < 9 U/L (7-40)
[2024-01-05] MEDS ORDERED: Escitalopram Oxalate (Lexapro) 20MG TABLET PO SCH (10:00)
[2024-01-05] MEDS: LISINOPRIL 20 MG TAB PO SCH (10:00)
[2024-01-05] MEDS: HYDROCHLOROTHIAZIDE PO SCH (10:00)
[2024-01-05] MEDS: ESTROGENS CONJUGATED 0.625 MG PO SCH (10:00)
[2024-01-05] MEDS ORDERED: DULoxetine HCL 30 MG CAP PO SCH (10:00)
[2024-01-05] MEDS: TRIAMTER PO SCH (10:00)
[2024-01-05] MEDS: ATENOLOL 25 MG TAB PO SCH (10:21)
[2024-01-05] MEDS: ENOXAPARIN SOD 40 MG/0.4 ML SYRINGE SC SCH (10:22)
[2024-01-05] MEDS: FAMOTIDINE 20 MG TAB PO SCH (10:22)
--- NOTE | 2024-01-05 11:36 | DVHPN2 ---
Progress Note - Dictate Date Seen: Jan 05, 2024 Medical Necessity Reason Pt with a Central, PICC or Fol: No vital signs Vital Sign Date Time Temp Pulse Resp B/P (MAP) Pulse Ox O2 Delivery O2 Flow Rate FiO2 01/05/24 10:21 73 123/54 01/05/24 09:00 98.1 18 98 98.1 01/05/24 08:00 Room Air* 0 21 Total Intake and Output 01/04/24 01/04/24 01/05/24 15:00 23:00 07:00 Intake Total 200 ml Balance 200 ml medications Current Medications Medications Dose Ordered Sig/Timoteo Route Start Time Stop Time Status Last Admin Dose Admin Ondansetron HCl 4 mg Q4HP PRN IV 01/04/24 10:00 Enoxaparin Sodium 40 mg DAILY SC 01/04/24 10:15 01/05/24 10:22 40 MG Morphine Sulfate 2 mg Q4HPRN PRN IV 01/04/24 10:00 01/05/24 05:05 2 MG Morphine Sulfate 2 mg Q30M PRN IV 01/04/24 10:00 Ketorolac Tromethamine 15 mg Q6HR IV 01/04/24 12:00 01/05/24 18:01 01/05/24 00:13 15 MG Acetaminophen/ Hydrocodone Bitart 1 tab Q4HP PRN PO 01/04/24 10:00 Temazepam 15 mg QHSP PRN PO 01/04/24 10:00 Nitroglycerin 0.4 mg Q5MINP PRN SL 01/04/24 10:00 Famotidine 40 mg DAILY PO 01/04/24 10:15 01/05/24 10:22 40 MG Atenolol 25 mg DAILY PO 01/05/24 10:00 01/05/24 10:21 25 MG Fentanyl 25 mcg Q72HR TD 01/04/24 11:30 Gabapentin 100 mg TID PO 01/04/24 14:00 01/05/24 07:04 100 MG Lorazepam 1 mg TID PO 01/04/24 14:00 01/05/24 07:04 1 MG Duloxetine HCl 60 mg DAILY PO 01/05/24 10:00 Hold Patient Own Medication 1 tab DAILY PO 01/05/24 10:00 Hold Patient Own Medication 1 tab DAILY PO 01/05/24 10:00 Patient Own Medication 1 cap DAILY PO 01/05/24 10:00 Lisinopril 40 mg DAILY PO 01/05/24 10:00 objective General Appearance: alert, no distress HEENT: EOMI, PERRLA, normal external inspect of ears, no icterus, no nasal drainage Neck: no carotid bruit, no jugular venous distention (JVD), no lymphadenopathy Chest: normal thorax Respiratory: clear to auscultation, normal air movement Cardiovascular: regular rate and rhythm, no diastolic murmur, no jugular venous distention (JVD), no rub, no systolic murmur Abdominal: soft, no hepatomegaly, no mass, no splenomegaly, no tenderness Genitourinary: grossly normal external Musculoskeletal: no joint tenderness, no swelling Extremities: normal pulses, no calf tenderness, no clubbing, no cyanosis, no edema Skin: no bruising, no jaundice, no rash Neurological: alert, No focal deficit laboratory and microbiology Laboratory Tests 01/05/24 04:57 Test 01/05/24 04:57 Range/Units Serum Glucose 96 74-106 mg/dL Problem List 1. Benign essential HTN Monitor, continue home meds 2. Morbid Obesity Monitor 3. Anxiety Monitor, anxiolytics 4. Chronic pain syndrome Monitor, IV Toradol, prn pain meds, DC planning Assessment/Plan Subjective Patient is awake and alert. Objective Patient has chronic pain as well as chronic back pain and bilateral shoulder pain. Recent imaging on unt[facility] years which shows chronic arthritis as well as her bilateral knees. Patient states she had a bilateral knee replacements with Dr. Burns and in 2012 she had back surgery with . She states she did not heal well from her back surgery. Patient has been reporting increased pain to her left knee. Patient states she was previously told she was not a candidate for shoulder surgery but she is unsure why. Patient's PCP is Dr. Fuchs. Plan Continue pain medication. Consult orthopedic surgeon for reeval of her left knee and bilateral shoulder. Consult PCP Dr. Thompson for input on patient's condition. Repeat labs ordered for a.m.. Plan discussed with: Patient, Other PARVEZEBONI YU Dayo HUTCHINSON Jan 05, 2024 11:36
--- NOTE | 2024-01-05 13:05 | DVHPN2 ---
Progress Note - Dictate Date Seen: Jan 04, 2024 Medical Necessity Reason Pt with a Central, PICC or Fol: No Subjective PT WITH SS COMPLEX HTN OBESITY RA CERVICAL AND LUMBER SPINAL STENOSIS DEGENERATIVE ARTHRITIS OF KNEE NOW WITH SEVERE PAIN INABILITY TO WALK vital signs Vital Sign Date Time Temp Pulse Resp B/P (MAP) Pulse Ox O2 Delivery O2 Flow Rate FiO2 01/05/24 12:44 97.4 75 20 94/28 (50) 97 97.4 01/05/24 08:00 Room Air* 0 21 Total Intake and Output 01/04/24 01/04/24 01/05/24 15:00 23:00 07:00 Intake Total 200 ml Balance 200 ml medications Current Medications Medications Dose Ordered Sig/Timoteo Route Start Time Stop Time Status Last Admin Dose Admin Ondansetron HCl 4 mg Q4HP PRN IV 01/04/24 10:00 Enoxaparin Sodium 40 mg DAILY SC 01/04/24 10:15 01/05/24 10:22 40 MG Morphine Sulfate 2 mg Q4HPRN PRN IV 01/04/24 10:00 01/05/24 05:05 2 MG Morphine Sulfate 2 mg Q30M PRN IV 01/04/24 10:00 Ketorolac Tromethamine 15 mg Q6HR IV 01/04/24 12:00 01/05/24 18:01 01/05/24 00:13 15 MG Acetaminophen/ Hydrocodone Bitart 1 tab Q4HP PRN PO 01/04/24 10:00 Temazepam 15 mg QHSP PRN PO 01/04/24 10:00 Nitroglycerin 0.4 mg Q5MINP PRN SL 01/04/24 10:00 Famotidine 40 mg DAILY PO 01/04/24 10:15 01/05/24 10:22 40 MG Atenolol 25 mg DAILY PO 01/05/24 10:00 01/05/24 10:21 25 MG Fentanyl 25 mcg Q72HR TD 01/04/24 11:30 Gabapentin 100 mg TID PO 01/04/24 14:00 01/05/24 07:04 100 MG Lorazepam 1 mg TID PO 01/04/24 14:00 01/05/24 07:04 1 MG Duloxetine HCl 60 mg DAILY PO 01/05/24 10:00 Hold Patient Own Medication 1 tab DAILY PO 01/05/24 10:00 Hold Patient Own Medication 1 tab DAILY PO 01/05/24 10:00 Patient Own Medication 1 cap DAILY PO 01/05/24 10:00 Lisinopril 40 mg DAILY PO 01/05/24 10:00 objective PUL CLEAR CV RR laboratory and microbiology Laboratory Tests 01/05/24 04:57 Test 01/05/24 04:57 Range/Units Serum Glucose 96 74-106 mg/dL Problem List SS COMPLEX HTN OBESITY RA CERVICAL AND LUMBER SPINAL STENOSIS DEGENERATIVE ARTHRITIS OF KNEE NOW WITH SEVERE PAIN INABILITY TO WALK Assessment/Plan CONSIDER STEROID THERAPY PAIN MANAGEMENT Plan discussed with: Patient JAYSON SOLORZANO MD Jan 05, 2024 13:05
[2024-01-05] MEDS: HYDROcodone-ACET 5/325MG TAB PO PRN (17:56)
[2024-01-05] MEDS: CALCIUM CARB 500 MG CHEW TAB PO SCH (23:12)
[2024-01-06 01:00] VITALS: BP 132/71; PULSE 62; RESP 18; TEMP 98.7; O2SAT 100
[2024-01-06 05:00] VITALS: BP 154/86; PULSE 68; RESP 20; TEMP 98; O2SAT 100
[2024-01-06 09:00] VITALS: BP 125/76; PULSE 90; RESP 15; TEMP 98.3; O2SAT 99
--- NOTE | 2024-01-06 12:33 | DVHPN2 ---
Progress Note - Dictate Date Seen: Jan 05, 2024 Medical Necessity Reason Pt with a Central, PICC or Fol: No Subjective PT WITH SS COMPLEX HTN OBESITY RA CERVICAL AND LUMBER SPINAL STENOSIS DEGENERATIVE ARTHRITIS OF KNEE NOW WITH SEVERE PAIN INABILITY TO WALK vital signs Vital Sign Date Time Temp Pulse Resp B/P (MAP) Pulse Ox O2 Delivery O2 Flow Rate FiO2 01/06/24 09:00 98.3 90 15 125/76 (92) 99 98.3 01/05/24 20:00 Room Air* 0 21 Total Intake and Output 01/05/24 01/05/24 01/06/24 15:00 23:00 07:00 Intake Total 1000 ml 300 ml Balance 1000 ml 300 ml medications Current Medications Medications Dose Ordered Sig/Timoteo Route Start Time Stop Time Status Last Admin Dose Admin Ondansetron HCl 4 mg Q4HP PRN IV 01/04/24 10:00 Enoxaparin Sodium 40 mg DAILY SC 01/04/24 10:15 01/05/24 10:22 40 MG Morphine Sulfate 2 mg Q4HPRN PRN IV 01/04/24 10:00 01/05/24 05:05 2 MG Morphine Sulfate 2 mg Q30M PRN IV 01/04/24 10:00 Acetaminophen/ Hydrocodone Bitart 1 tab Q4HP PRN PO 01/04/24 10:00 01/06/24 05:34 1 TAB Temazepam 15 mg QHSP PRN PO 01/04/24 10:00 Nitroglycerin 0.4 mg Q5MINP PRN SL 01/04/24 10:00 Famotidine 40 mg DAILY PO 01/04/24 10:15 01/05/24 10:22 40 MG Atenolol 25 mg DAILY PO 01/05/24 10:00 01/05/24 10:21 25 MG Fentanyl 25 mcg Q72HR TD 01/04/24 11:30 Gabapentin 100 mg TID PO 01/04/24 14:00 01/06/24 06:54 100 MG Lorazepam 1 mg TID PO 01/04/24 14:00 01/06/24 06:54 1 MG Duloxetine HCl 60 mg DAILY PO 01/05/24 10:00 Hold Patient Own Medication 1 tab DAILY PO 01/05/24 10:00 Hold Patient Own Medication 1 tab DAILY PO 01/05/24 10:00 Patient Own Medication 1 cap DAILY PO 01/05/24 10:00 Lisinopril 40 mg DAILY PO 01/05/24 10:00 Calcium Carbonate 500 mg BID PO 01/05/24 23:00 01/05/24 23:12 500 MG objective PUL CLEAR CV RR laboratory and microbiology Laboratory Tests 01/05/24 04:57 Test 01/05/24 04:57 Range/Units Serum Glucose 96 74-106 mg/dL Problem List SS COMPLEX HTN OBESITY RA CERVICAL AND LUMBER SPINAL STENOSIS DEGENERATIVE ARTHRITIS OF KNEE NOW WITH SEVERE PAIN INABILITY TO WALK Assessment/Plan CONSIDER STEROID THERAPY PAIN MANAGEMENT MRI LEFT KNEE AND SPINE Plan discussed with: Patient JAYSON SOLORZANO MD Jan 06, 2024 12:33
[2024-01-06 13:00] VITALS: BP 136/60; PULSE 68; RESP 15; TEMP 98; O2SAT 98
--- NOTE | 2024-01-06 13:11 | DVHINCON2 ---
Date of service: Jan 06, 2024 Reason for Consultation Bilateral knee and shoulder pain History of Present Illness 78 yo F with BL knee and shoulder pain - no injury or trauma that she can re call. She had an increased of activity recently for a health fit class and likely could have triggered this. Past Medical History list reviewed Past Surgical History list reviewed Family History: FH: hypercholesterolemia Hypercholesterolemia G8 MOTHER Hypertension G8 MOTHER G8 FATHER Allergies: Coded Allergies: NO KNOWN ALLERGIES (Unverified , 07/03/12) Home Meds Reported Medications Gabapentin (Gabapentin) 100 Mg Cap, 1 CAP PO TID, #90 CAP 2 Refills 02/08/16 Duloxetine Hcl (Cymbalta) 60 Mg Cap, 1 CAP PO DAILY, #90 CAP 3 Refills 02/08/16 Escitalopram Oxalate (Lexapro) 20 Mg Tab, 1 TAB PO DAILY, #90 TAB 3 Refills 02/08/16 Lansoprazole (Prevacid) 15 Mg Cap, 30 MG PO DAILY, CAP 02/08/16 Lorazepam (Ativan) 0.5 Mg Tab, 1 MG PO TID, TAB 02/08/16 Hydrochlorothiazide W/Triamter (Dyazide) 1 Cap Cap, 25 CAP PO DAILY, #30 CAP 3 Refills 02/08/16 Lisinopril (Lisinopril) 40 Mg Tab, 1 TAB PO DAILY, #30 TAB 5 Refills 02/08/16 Lidocaine (LIDODERM 5% TOPICAL PATCH) 1 Patch Ph, 1 PATCH TOP DAILY, #30 PATCH 1 Refill 02/07/16 Fentanyl (Fentanyl) 25 Mcg/Hr Dis, 25 MCG TD Q72 PRN for MILD PAIN OR TEM P>100.4, DIS 02/07/16 Estrogens, Conjugated (PREMARIN TABLET) 0.625 Mg Tb, 1 TAB PO DAILY, #30 TAB 11 Refills 02/06/16 Lansoprazole (Prevacid) 15 Mg Cap, 30 MG PO DAILY, CAP 02/06/16 Oxycodone W/ Acetaminophen (Percocet 5/325MG) 1 Tab Tb, 2 TAB PO Q6HP PRN for MILD PAIN OR TEMP>100.4, #120 TAB 02/06/16 Atenolol (Tenormin) 25 Mg Tb, 1 TAB PO DAILY 07/03/12 Current Medications Current Medications Medications (Trade) Dose Ordered Sig/Timoteo Route PRN Reason Start Time Stop Time Status Last Admin Calcium Carbonate (Tums) 500 mg BID PO 01/05/24 23:00 01/05/24 23:12 Hydrocortisone Sodium Succinate (Solu-CORTEF INJECTION) 50 mg DAILY IV 01/07/24 10:00 Review of Systems 10 POINT ROS is neg except per HPI Vital Signs Vital Signs Date Time Temp Pulse Resp B/P (MAP) Pulse Ox O2 Delivery O2 Flow Rate FiO2 01/06/24 09:00 98.3 90 15 125/76 (92) 99 98.3 01/05/24 20:00 Room Air* 0 21 Physical Exam NAD BL UE: +TTP at shoulder shoulder FF 100 BL LE: inc cdi no erythema min effusion knee ROM 0-95 wtih click Labs/Diagnostic Data Labs Test 01/05/24 04:57 01/04/24 06:40 Range/Units White Blood Count 9.7 # 4.4-10.8 10^3/uL Red Blood Count 4.25 4.0-5.20 10^6/uL Hemoglobin 12.9 12.2-16.2 g/dL Hematocrit 39.0 36.0-46.0 % Mean Corpuscular Volume 91.8 80.0-100.0 fL Mean Corpuscular Hemoglobin 30.3 28.0-32.0 pg Mean Corpuscular Hemoglobin Concent 33.0 32.0-36.0 g/dL Red Cell Distribution Width 13.9 11.8-14.3 % Platelet Count 340 140-450 10^3/uL Mean Platelet Volume 8.3 6.9-10.8 fL Neutrophils (%) (Auto) 56.1 37.0-80.0 % Lymphocytes (%) (Auto) 32.5 10.0-50.0 % Monocytes (%) (Auto) 7.4 0.0-12.0 % Eosinophils (%) (Auto) 2.7 0.0-7.0 % Basophils (%) (Auto) 1.3 0.0-2.0 % Neutrophils # (Auto) 5.4 1.6-8.6 10 ^3/uL Lymphocytes # (Auto) 3.1 0.4-5.4 10 ^3/uL Monocytes # (Auto) 0.7 0-1.3 10 ^3/uL Eosinophils # (Auto) 0.3 0-0.8 10 ^3/uL Basophils # (Auto) 0.1 0-0.2 10 ^3/uL Nucleated Red Blood Cells 0.1 % Sodium Level 135 L 136-145 mmol/L Potassium Level 4.5 3.5-5.1 mmol/L Chloride Level 101 98-107 mmol/L Carbon Dioxide Level 27 20-31 mmol/L Anion Gap 7 5-15 Blood Urea Nitrogen 26 H 9-23 mg/dL Creatinine 1.01 0.550-1.02 mg/dL Glomerular Filtration Rate Calc 57 >90 mL/min BUN/Creatinine Ratio 25.7 H 10.0-20.0 Serum Glucose 96 74-106 mg/dL Calcium Level 9.7 8.7-10.4 mg/dL Total Bilirubin 0.4 0.2-1.0 mg/dL Aspartate Amino Transferase (AST) 12 L 13-40 U/L Alanine Aminotransferase (ALT) < 9 7-40 U/L Alkaline Phosphatase 97 46-116 U/L Total Protein 6.6 5.7-8.2 g/dL Albumin 3.8 3.2-4.8 g/dL Urine Color Colorless Yellow Urine Clarity Clear Clear Urine pH 5.0 5.0-9.0 Urine Specific [place] 1.009 1.001-1.035 Urine Protein Negative Negative Urine Ketones Negative Negative Urine Blood Negative Negative /uL Urine Nitrite Negative Negative Urine Bilirubin Negative Negative Urine Urobilinogen Normal Negative mg/dL Urine Leukocyte Esterase Negative Negative /uL Urine RBC 1 0 - 4 /hpf Urine WBC 2 0 - 5 /hpf Urine Squamous Epithelial Cells Few <5 /hpf Urine Bacteria None seen None Seen /hpf Urine Hyaline Casts Few 0 - 2 /lpf Urine Glucose Normal Normal mg/dL Microbiology Date/Time Source Procedure Growth Status 01/05/24 00:39 Nose MRSA Screen - Final Complete Plan/Recommendation 78 yo F with Bilateral rotator cuff arthropathy and Bilateral TKA (painful Left TKA) 1. WBAT BL UE/ LE 2. no acute surgical intervention 3. pain control 4. PT 5. follow up at [facility] ortho clinic in 10-14 days Plan discussed with: Patient MANE HAYES MD Jan 06, 2024 13:11
--- NOTE | 2024-01-06 14:20 | DVH ---
MR lumbar spine HISTORY: SPINAL STENOSIS TECHNIQUE: MR was performed with a surface coil at 1.5 T magnet. Sagittal, axial and coronal T1 and T 2-weighted images were obtained. FINDINGS: Orthopedic hardware present posteriorly at L2 through L5. There are disc spacers at L2-3 L 3-4 and L4-5. At L1-2 loss of disc height and signal intensity. No narrowing of the central canal and neural lulu stefanie At L2-3 and L3-4 no narrowing of the central canal and neural foramina At L4-5 3 mm anterolisthesis without significant narrowing of the central canal or neural foramina L5-S1 loss of disc height signal intensity. 3 mm anterolisthesis due to degenerative facet joint dise ase without narrowing of the central canal and neural foramen Cord ends at T12-L1 and is normal in appearance IMPRESSION: 1. Postsurgical changes as described. Mild 3 mm anterolisthesis at L4-5 and L5-S1. 2. No disc herniation or nerve root compression
--- NOTE | 2024-01-06 14:54 | DVHPN2 ---
Progress Note - Dictate Date Seen: Jan 06, 2024 Medical Necessity Reason Pt with a Central, PICC or Fol: No vital signs Vital Sign Date Time Temp Pulse Resp B/P (MAP) Pulse Ox O2 Delivery O2 Flow Rate FiO2 01/06/24 14:51 143/77 01/06/24 14:50 67 01/06/24 09:00 98.3 15 99 98.3 01/05/24 20:00 Room Air* 0 21 Total Intake and Output 01/05/24 01/05/24 01/06/24 15:00 23:00 07:00 Intake Total 1000 ml 300 ml Balance 1000 ml 300 ml medications Current Medications Medications Dose Ordered Sig/Timoteo Route Start Time Stop Time Status Last Admin Dose Admin Ondansetron HCl 4 mg Q4HP PRN IV 01/04/24 10:00 Enoxaparin Sodium 40 mg DAILY SC 01/04/24 10:15 01/05/24 10:22 40 MG Morphine Sulfate 2 mg Q4HPRN PRN IV 01/04/24 10:00 01/05/24 05:05 2 MG Morphine Sulfate 2 mg Q30M PRN IV 01/04/24 10:00 Acetaminophen/ Hydrocodone Bitart 1 tab Q4HP PRN PO 01/04/24 10:00 01/06/24 05:34 1 TAB Temazepam 15 mg QHSP PRN PO 01/04/24 10:00 Nitroglycerin 0.4 mg Q5MINP PRN SL 01/04/24 10:00 Famotidine 40 mg DAILY PO 01/04/24 10:15 01/06/24 14:39 40 MG Atenolol 25 mg DAILY PO 01/05/24 10:00 01/06/24 14:50 25 MG Fentanyl 25 mcg Q72HR TD 01/04/24 11:30 Gabapentin 100 mg TID PO 01/04/24 14:00 01/06/24 14:38 100 MG Lorazepam 1 mg TID PO 01/04/24 14:00 01/06/24 14:41 1 MG Duloxetine HCl 60 mg DAILY PO 01/05/24 10:00 Hold Patient Own Medication 1 tab DAILY PO 01/05/24 10:00 Hold Patient Own Medication 1 tab DAILY PO 01/05/24 10:00 Patient Own Medication 1 cap DAILY PO 01/05/24 10:00 Lisinopril 40 mg DAILY PO 01/05/24 10:00 01/06/24 14:51 40 MG Calcium Carbonate 500 mg BID PO 01/05/24 23:00 01/06/24 14:41 500 MG Hydrocortisone Sodium Succinate 50 mg DAILY IV 01/07/24 10:00 objective General Appearance: alert, no distress HEENT: EOMI, PERRLA, normal external inspect of ears, no icterus, no nasal drainage Neck: no carotid bruit, no jugular venous distention (JVD), no lymphadenopathy Chest: normal thorax Respiratory: clear to auscultation, normal air movement Cardiovascular: regular rate and rhythm, no diastolic murmur, no jugular venous distention (JVD), no rub, no systolic murmur Abdominal: soft, no hepatomegaly, no mass, no splenomegaly, no tenderness Genitourinary: grossly normal external Musculoskeletal: no joint tenderness, no swelling Extremities: normal pulses, no calf tenderness, no clubbing, no cyanosis, no edema Skin: no bruising, no jaundice, no rash Neurological: alert, No focal deficit laboratory and microbiology Laboratory Tests 01/05/24 04:57 Test 01/05/24 04:57 Range/Units Serum Glucose 96 74-106 mg/dL Problem List 1. Benign essential HTN Monitor, continue home meds 2. Morbid Obesity Monitor 3. Anxiety Monitor, anxiolytics 4. Chronic pain syndrome Monitor, IV Toradol, prn pain meds, DC planning Assessment/Plan Subjective: Patient is awake and alert. Objective: The patient was evaluated by her PCP and an orthopedic surgeon today. She was admitted for intractable pain and reports that she has been unable to ambulate. According to the RN, the patient sustained a non-witnessed fall today but stated that she was able to lower herself to the floor. She sustained a hand laceration, but per the orthopedic surgeon, no surgical intervention is required. PCP is considering possible steroid treatment. Plan: Continue current treatment. Additional imaging has been ordered by Dr. Thompson. Maintain the current pain medication regimen. Plan discussed with: Patient, Other EBONI DYSON NP Jan 06, 2024 14:54
[2024-01-06 17:00] VITALS: BP 136/53; PULSE 70; RESP 16; TEMP 98; O2SAT 98
[2024-01-06 22:00] VITALS: BP 127/59; PULSE 65; RESP 18; TEMP 97.4; O2SAT 93
[2024-01-07] VITALS (7 sets, daily range): BP systolic 115–145; BP diastolic 53–80; PULSE 62–70; RESP 17–18; TEMP 97.5–98.6; O2SAT 92–97
--- NOTE | 2024-01-07 09:20 | DVHPN2 ---
Progress Note - Dictate Date Seen: Jan 07, 2024 Medical Necessity Reason Pt with a Central, PICC or Fol: No Subjective PT WITH SS COMPLEX HTN OBESITY RA CERVICAL AND LUMBER SPINAL STENOSIS DEGENERATIVE ARTHRITIS OF KNEE NOW WITH SEVERE PAIN INABILITY TO WALK vital signs Vital Sign Date Time Temp Pulse Resp B/P (MAP) Pulse Ox O2 Delivery O2 Flow Rate FiO2 01/07/24 05:00 98.2 67 18 145/80 (101) 97 98.2 01/06/24 20:00 Room Air* 0 21 Total Intake and Output 01/06/24 01/06/24 01/07/24 15:00 23:00 07:00 Intake Total 260 ml 800 ml Balance 260 ml 800 ml medications Current Medications Medications Dose Ordered Sig/Timoteo Route Start Time Stop Time Status Last Admin Dose Admin Ondansetron HCl 4 mg Q4HP PRN IV 01/04/24 10:00 Enoxaparin Sodium 40 mg DAILY SC 01/04/24 10:15 01/05/24 10:22 40 MG Morphine Sulfate 2 mg Q4HPRN PRN IV 01/04/24 10:00 01/05/24 05:05 2 MG Morphine Sulfate 2 mg Q30M PRN IV 01/04/24 10:00 Acetaminophen/ Hydrocodone Bitart 1 tab Q4HP PRN PO 01/04/24 10:00 01/07/24 04:02 1 TAB Temazepam 15 mg QHSP PRN PO 01/04/24 10:00 Nitroglycerin 0.4 mg Q5MINP PRN SL 01/04/24 10:00 Famotidine 40 mg DAILY PO 01/04/24 10:15 01/06/24 14:39 40 MG Atenolol 25 mg DAILY PO 01/05/24 10:00 01/06/24 14:50 25 MG Fentanyl 25 mcg Q72HR TD 01/04/24 11:30 Gabapentin 100 mg TID PO 01/04/24 14:00 01/07/24 06:08 100 MG Lorazepam 1 mg TID PO 01/04/24 14:00 01/07/24 06:08 1 MG Duloxetine HCl 60 mg DAILY PO 01/05/24 10:00 Hold Patient Own Medication 1 tab DAILY PO 01/05/24 10:00 Hold Patient Own Medication 1 tab DAILY PO 01/05/24 10:00 Patient Own Medication 1 cap DAILY PO 01/05/24 10:00 Lisinopril 40 mg DAILY PO 01/05/24 10:00 01/06/24 14:51 40 MG Calcium Carbonate 500 mg BID PO 01/05/24 23:00 01/06/24 23:04 500 MG Hydrocortisone Sodium Succinate 50 mg DAILY IV 01/07/24 10:00 objective PUL CLEAR CV RR laboratory and microbiology Laboratory Tests 01/05/24 04:57 Test 01/05/24 04:57 Range/Units Serum Glucose 96 74-106 mg/dL Problem List SS COMPLEX HTN OBESITY RA CERVICAL AND LUMBER SPINAL STENOSIS DEGENERATIVE ARTHRITIS OF KNEE NOW WITH SEVERE PAIN INABILITY TO WALK Assessment/Plan CONSIDER STEROID THERAPY PAIN MANAGEMENT MRI LEFT KNEE AND SPINE/ COULD NOT BE DONE BECAUSE OF BILATERAL TKR MRI OF SPINE 1. Postsurgical changes as described. Mild 3 mm anterolisthesis at L4-5 and L5-S1. 2. No disc herniation or nerve root compression START PHYSICAL THERAPY Plan discussed with: Patient JAYSON SOLORZANO MD Jan 07, 2024 09:20
--- NOTE | 2024-01-07 10:38 | DVHPN2 ---
Progress Note - Dictate Date Seen: Jan 07, 2024 Medical Necessity Reason Pt with a Central, PICC or Fol: No vital signs Vital Sign Date Time Temp Pulse Resp B/P (MAP) Pulse Ox O2 Delivery O2 Flow Rate FiO2 01/07/24 09:00 98.1 69 17 131/57 (81) 97 98.1 01/06/24 20:00 Room Air* 0 21 Total Intake and Output 01/06/24 01/06/24 01/07/24 15:00 23:00 07:00 Intake Total 260 ml 800 ml Balance 260 ml 800 ml medications Current Medications Medications Dose Ordered Sig/Timoteo Route Start Time Stop Time Status Last Admin Dose Admin Ondansetron HCl 4 mg Q4HP PRN IV 01/04/24 10:00 Enoxaparin Sodium 40 mg DAILY SC 01/04/24 10:15 01/05/24 10:22 40 MG Morphine Sulfate 2 mg Q4HPRN PRN IV 01/04/24 10:00 01/05/24 05:05 2 MG Morphine Sulfate 2 mg Q30M PRN IV 01/04/24 10:00 Acetaminophen/ Hydrocodone Bitart 1 tab Q4HP PRN PO 01/04/24 10:00 01/07/24 04:02 1 TAB Temazepam 15 mg QHSP PRN PO 01/04/24 10:00 Nitroglycerin 0.4 mg Q5MINP PRN SL 01/04/24 10:00 Famotidine 40 mg DAILY PO 01/04/24 10:15 01/06/24 14:39 40 MG Atenolol 25 mg DAILY PO 01/05/24 10:00 01/06/24 14:50 25 MG Fentanyl 25 mcg Q72HR TD 01/04/24 11:30 Gabapentin 100 mg TID PO 01/04/24 14:00 01/07/24 06:08 100 MG Lorazepam 1 mg TID PO 01/04/24 14:00 01/07/24 06:08 1 MG Duloxetine HCl 60 mg DAILY PO 01/05/24 10:00 Hold Patient Own Medication 1 tab DAILY PO 01/05/24 10:00 Hold Patient Own Medication 1 tab DAILY PO 01/05/24 10:00 Patient Own Medication 1 cap DAILY PO 01/05/24 10:00 Lisinopril 40 mg DAILY PO 01/05/24 10:00 01/06/24 14:51 40 MG Calcium Carbonate 500 mg BID PO 01/05/24 23:00 01/06/24 23:04 500 MG Hydrocortisone Sodium Succinate 50 mg DAILY IV 01/07/24 10:00 objective General Appearance: alert, no distress HEENT: EOMI, PERRLA, normal external inspect of ears, no icterus, no nasal drainage Neck: no carotid bruit, no jugular venous distention (JVD), no lymphadenopathy Chest: normal thorax Respiratory: clear to auscultation, normal air movement Cardiovascular: regular rate and rhythm, no diastolic murmur, no jugular venous distention (JVD), no rub, no systolic murmur Abdominal: soft, no hepatomegaly, no mass, no splenomegaly, no tenderness Genitourinary: grossly normal external Musculoskeletal: no joint tenderness, no swelling Extremities: normal pulses, no calf tenderness, no clubbing, no cyanosis, no edema Skin: no bruising, no jaundice, no rash Neurological: alert, No focal deficit laboratory and microbiology Laboratory Tests 01/05/24 04:57 Test 01/05/24 04:57 Range/Units Serum Glucose 96 74-106 mg/dL Problem List 1. Benign essential HTN Monitor, continue home meds 2. Morbid Obesity Monitor 3. Anxiety Monitor, anxiolytics 4. Chronic pain syndrome Monitor, IV Toradol, prn pain meds, DC planning Assessment/Plan Subjective Patient is awake and alert. Objective Patient was admitted on January 03 for intractable pain. 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 Patient has had both knees replaced in the past. Patient was seen by orthopedic surgeon. No surgical intervention warranted at this time. Patient was seen by her PCP Dr. Thompson. He has ordered IV Solu-Medrol. Plan Patient still complaining of pain. Morphine was discontinued. Patient was placed on IV Dilaudid and [place]. Continue current treatment. DC planning in 1 to 2 days. Plan discussed with: Patient, Other EBONI DYSON NP Jan 07, 2024 10:38
[2024-01-07] MEDS: INFLUENZA TRIVALENT 2024-2025 0.5 ML INJ IM ONE ×2 (10:47→10:55)
[2024-01-07] MEDS: PNEUMOCOCCAL VACC POLYS 25 MCG/0.5 ML VIAL IM ONE (10:49)
[2024-01-07] MEDS: HYDROCORTISONE SOD SUCC 100 MG/2ML INJ VIAL IV SCH (10:50)
[2024-01-07 12:29] LABS: Anion Gap 6 (5-15); Carbon Dioxide 26 mmol/L (20-31); Chloride 104 mmol/L (98-107); Sodium 136 mmol/L (136-145)
[2024-01-07 12:30] LABS: Calcium 9.8 mg/dL (8.7-10.4)
[2024-01-07 12:31] LABS: Basophils # (auto) 0 10 ^3/uL (0-0.2); Basophils % (auto) 0.3 % (0.0-2.0); Eosinophils # (auto) 0.4 10 ^3/uL (0-0.8); Eosinophils % (auto) 3.4 % (0.0-7.0); Hematocrit 38.2 % (36.0-46.0); Hemoglobin 12.7 g/dL (12.2-16.2); Lymphocytes # (auto) 2.9 10 ^3/uL (0.4-5.4); Lymphocytes % (auto) 24.6 % (10.0-50.0); Mean Corpuscular Hemoglobin 30.5 pg (28.0-32.0); Mean Corpuscular Hgb Conc. 33.3 g/dL (32.0-36.0); Mean Corpuscular Volume 91.7 fL (80.0-100.0); Monocytes # (auto) 0.9 10 ^3/uL (0-1.3); Monocytes % (auto) 8.1 % (0.0-12.0); Neutrophils # (auto) 7.4 10 ^3/uL (1.6-8.6); Neutrophils % (auto) 63.6 % (37.0-80.0); Platelet Count (auto) 335 10^3/uL (140-450); Red Blood Cells 4.16 10^6/uL (4.0-5.20); Red Cell Distribution Width 13.7 % (11.8-14.3); White Blood Cell 11.6 10^3/uL (4.4-10.8)
[2024-01-07 12:35] LABS: BUN/Creatinine Ratio 17.2 (10.0-20.0); Blood Urea Nitrogen 16 mg/dL (9-23); Glucose 121 mg/dL (74-106)
[2024-01-07] MEDS: HYDROmorphone HCL 2 MG/ML VL/or syr IV PRN (16:20)
[2024-01-08 01:00] VITALS: BP 119/49; PULSE 67; RESP 19; TEMP 98.3; O2SAT 95
[2024-01-08 05:00] VITALS: BP 153/61; PULSE 75; RESP 19; TEMP 98.4; O2SAT 95
[2024-01-08 09:00] VITALS: BP 118/53; PULSE 71; RESP 18; TEMP 98.1; O2SAT 96
--- NOTE | 2024-01-08 09:53 | DVHPN2 ---
Progress Note - Dictate Date Seen: Jan 08, 2024 Medical Necessity Reason Pt with a Central, PICC or Fol: No vital signs Vital Sign Date Time Temp Pulse Resp B/P (MAP) Pulse Ox O2 Delivery O2 Flow Rate FiO2 01/08/24 09:37 71 118/53 01/08/24 09:35 18 01/08/24 09:00 98.1 96 98.1 01/07/24 20:00 Room Air* 0 21 Total Intake and Output 01/07/24 01/07/24 01/08/24 15:00 23:00 07:00 Intake Total 620 ml 800 ml Balance 620 ml 800 ml medications Current Medications Medications Dose Ordered Sig/Timoteo Route Start Time Stop Time Status Last Admin Dose Admin Ondansetron HCl 4 mg Q4HP PRN IV 01/04/24 10:00 Enoxaparin Sodium 40 mg DAILY SC 01/04/24 10:15 01/08/24 09:32 40 MG Morphine Sulfate 2 mg Q30M PRN IV 01/04/24 10:00 Hold Acetaminophen/ Hydrocodone Bitart 1 tab Q4HP PRN PO 01/04/24 10:00 01/08/24 06:28 1 TAB Temazepam 15 mg QHSP PRN PO 01/04/24 10:00 Nitroglycerin 0.4 mg Q5MINP PRN SL 01/04/24 10:00 Famotidine 40 mg DAILY PO 01/04/24 10:15 01/08/24 09:37 40 MG Atenolol 25 mg DAILY PO 01/05/24 10:00 01/08/24 09:37 25 MG Fentanyl 25 mcg Q72HR TD 01/04/24 11:30 Gabapentin 100 mg TID PO 01/04/24 14:00 01/08/24 06:15 100 MG Lorazepam 1 mg TID PO 01/04/24 14:00 01/08/24 06:15 1 MG Duloxetine HCl 60 mg DAILY PO 01/05/24 10:00 Hold Patient Own Medication 1 tab DAILY PO 01/05/24 10:00 Hold Patient Own Medication 1 tab DAILY PO 01/05/24 10:00 Patient Own Medication 1 cap DAILY PO 01/05/24 10:00 Lisinopril 40 mg DAILY PO 01/05/24 10:00 01/08/24 09:36 40 MG Calcium Carbonate 500 mg BID PO 01/05/24 23:00 01/08/24 09:35 500 MG Hydrocortisone Sodium Succinate 50 mg DAILY IV 01/07/24 10:00 01/08/24 09:35 50 MG Hydromorphone HCl 0.5 mg Q4HPRN PRN IV 01/07/24 12:15 01/08/24 09:35 0.5 MG objective General Appearance: alert, no distress HEENT: EOMI, PERRLA, normal external inspect of ears, no icterus, no nasal drainage Neck: no carotid bruit, no jugular venous distention (JVD), no lymphadenopathy Chest: normal thorax Respiratory: clear to auscultation, normal air movement Cardiovascular: regular rate and rhythm, no diastolic murmur, no jugular venous distention (JVD), no rub, no systolic murmur Abdominal: soft, no hepatomegaly, no mass, no splenomegaly, no tenderness Genitourinary: grossly normal external Musculoskeletal: no joint tenderness, no swelling Extremities: normal pulses, no calf tenderness, no clubbing, no cyanosis, no edema Skin: no bruising, no jaundice, no rash Neurological: alert, No focal deficit laboratory and microbiology Laboratory Tests 01/07/24 11:32 Test 01/07/24 11:32 Range/Units Serum Glucose 121 H 74-106 mg/dL Problem List 1. Benign essential HTN Monitor, continue home meds 2. Morbid Obesity Monitor 3. Anxiety Monitor, anxiolytics 4. Chronic pain syndrome Monitor, IV Toradol, prn pain meds, DC planning Assessment/Plan Subjective Patient is awake and alert. Objective Patient was admitted for intractable pain. Patient was seen by her PCP Dr. Thompson as well as orthopedic surgeon no surgery indcated at this time. Patient has a history of bilateral knee replacement and has a history of arthritis to her bilateral shoulders. Patient states she is unable to walk. Patient states she had a bad day today and she does not feel like working with physical therapy. Plan Continue physical therapy and pain management. DC planning in 1 to 2 days. Dietary Evaluation Review Comments: Continue current plan of care Expected Outcomes/Goals: F/U in 3-5 days Plan discussed with: Patient, Other EBONI DYSON NP Jan 08, 2024 09:53
[2024-01-08 12:59] VITALS: BP 132/43; PULSE 62; RESP 18; TEMP 97.3; O2SAT 96
[2024-01-08 17:00] VITALS: BP 125/68; PULSE 65; RESP 18; TEMP 97.6; O2SAT 97
[2024-01-08 21:00] VITALS: BP 109/56; PULSE 85; RESP 18; TEMP 98.3; O2SAT 96
[2024-01-09 01:00] VITALS: BP 121/47; PULSE 69; RESP 20; TEMP 97.7; O2SAT 97
[2024-01-09 05:00] VITALS: BP 138/67; PULSE 79; RESP 22; TEMP 97.8; O2SAT 98
[2024-01-09 09:00] VITALS: BP 130/45; PULSE 73; RESP 18; TEMP 97.9; O2SAT 93
--- NOTE | 2024-01-09 10:21 | DVHPN2 ---
Progress Note - Dictate Date Seen: Jan 09, 2024 Medical Necessity Reason Pt with a Central, PICC or Fol: No vital signs Vital Sign Date Time Temp Pulse Resp B/P (MAP) Pulse Ox O2 Delivery O2 Flow Rate FiO2 01/09/24 09:01 72 18 141/53 01/09/24 07:31 Room Air* 0 21 01/09/24 05:00 97.8 98 97.8 Total Intake and Output 01/08/24 01/08/24 01/09/24 15:00 23:00 07:00 Intake Total 1600 ml 480 ml Output Total 450 ml Balance 1600 ml 30 ml medications Current Medications Medications Dose Ordered Sig/Timoteo Route Start Time Stop Time Status Last Admin Dose Admin Ondansetron HCl 4 mg Q4HP PRN IV 01/04/24 10:00 Enoxaparin Sodium 40 mg DAILY SC 01/04/24 10:15 01/09/24 09:00 40 MG Morphine Sulfate 2 mg Q30M PRN IV 01/04/24 10:00 Hold Acetaminophen/ Hydrocodone Bitart 1 tab Q4HP PRN PO 01/04/24 10:00 01/09/24 05:33 1 TAB Temazepam 15 mg QHSP PRN PO 01/04/24 10:00 Nitroglycerin 0.4 mg Q5MINP PRN SL 01/04/24 10:00 Famotidine 40 mg DAILY PO 01/04/24 10:15 01/09/24 08:58 40 MG Atenolol 25 mg DAILY PO 01/05/24 10:00 01/09/24 08:59 25 MG Fentanyl 25 mcg Q72HR TD 01/04/24 11:30 Gabapentin 100 mg TID PO 01/04/24 14:00 01/09/24 05:32 100 MG Lorazepam 1 mg TID PO 01/04/24 14:00 01/09/24 05:32 1 MG Duloxetine HCl 60 mg DAILY PO 01/05/24 10:00 Hold Patient Own Medication 1 tab DAILY PO 01/05/24 10:00 Hold Patient Own Medication 1 tab DAILY PO 01/05/24 10:00 Patient Own Medication 1 cap DAILY PO 01/05/24 10:00 Lisinopril 40 mg DAILY PO 01/05/24 10:00 01/09/24 08:59 40 MG Calcium Carbonate 500 mg BID PO 01/05/24 23:00 01/09/24 08:58 500 MG Hydrocortisone Sodium Succinate 50 mg DAILY IV 01/07/24 10:00 01/09/24 08:57 50 MG Hydromorphone HCl 0.5 mg Q4HPRN PRN IV 01/07/24 12:15 01/09/24 09:01 0.5 MG objective General Appearance: alert, no distress HEENT: EOMI, PERRLA, normal external inspect of ears, no icterus, no nasal drainage Neck: no carotid bruit, no jugular venous distention (JVD), no lymphadenopathy Chest: normal thorax Respiratory: clear to auscultation, normal air movement Cardiovascular: regular rate and rhythm, no diastolic murmur, no jugular venous distention (JVD), no rub, no systolic murmur Abdominal: soft, no hepatomegaly, no mass, no splenomegaly, no tenderness Genitourinary: grossly normal external Musculoskeletal: no joint tenderness, no swelling Extremities: normal pulses, no calf tenderness, no clubbing, no cyanosis, no edema Skin: no bruising, no jaundice, no rash Neurological: alert, No focal deficit laboratory and microbiology Laboratory Tests 01/07/24 11:32 Test 01/07/24 11:32 Range/Units Serum Glucose 121 H 74-106 mg/dL Problem List 1. Benign essential HTN Monitor, continue home meds 2. Morbid Obesity Monitor 3. Anxiety Monitor, anxiolytics 4. Chronic pain syndrome Monitor, IV Toradol, prn pain meds, DC planning Assessment/Plan Subjective Patient is awake and alert. Objective No change to patient's status. Patient continues to complain of uncontrolled pain. Patient states she had a bad day yesterday. She did not participate in physical therapy. Plan Continue current treatment. DC planning tomorrow if cleared by Dr. Thompson. Dietary Evaluation Review Comments: Continue current plan of care Expected Outcomes/Goals: F/U in 3-5 days Plan discussed with: Patient, Other EBONI DYSON NP Jan 09, 2024 10:21
[2024-01-09 13:00] VITALS: BP 152/77; PULSE 73; RESP 20; TEMP 97.4; O2SAT 96
[2024-01-09 21:43] VITALS: BP 117/49; PULSE 74; RESP 20; TEMP 98.4; O2SAT 98
[2024-01-10] VITALS (7 sets, daily range): BP systolic 107–154; BP diastolic 50–71; PULSE 64–110; RESP 16–20; TEMP 36.6; O2SAT 95–99
--- NOTE | 2024-01-10 08:58 | DVHPN2 ---
Progress Note - Dictate Date Seen: Jan 10, 2024 Medical Necessity Reason Pt with a Central, PICC or Fol: No Subjective PT WITH SS COMPLEX HTN OBESITY RA CERVICAL AND LUMBER SPINAL STENOSIS DEGENERATIVE ARTHRITIS OF KNEE NOW WITH SEVERE PAIN INABILITY TO WALK vital signs Vital Sign Date Time Temp Pulse Resp B/P (MAP) Pulse Ox O2 Delivery O2 Flow Rate FiO2 01/10/24 08:19 75 20 107/50 01/10/24 08:00 Room Air* 0 21 01/10/24 05:00 98.8 95 98.8 Total Intake and Output 01/09/24 01/09/24 01/10/24 15:00 23:00 07:00 Intake Total 800 ml 300 ml Output Total 450 ml Balance 800 ml -150 ml medications Current Medications Medications Dose Ordered Sig/Timoteo Route Start Time Stop Time Status Last Admin Dose Admin Ondansetron HCl 4 mg Q4HP PRN IV 01/04/24 10:00 Enoxaparin Sodium 40 mg DAILY SC 01/04/24 10:15 01/09/24 09:00 40 MG Morphine Sulfate 2 mg Q30M PRN IV 01/04/24 10:00 Hold Acetaminophen/ Hydrocodone Bitart 1 tab Q4HP PRN PO 01/04/24 10:00 01/10/24 05:52 1 TAB Temazepam 15 mg QHSP PRN PO 01/04/24 10:00 Nitroglycerin 0.4 mg Q5MINP PRN SL 01/04/24 10:00 Famotidine 40 mg DAILY PO 01/04/24 10:15 01/09/24 08:58 40 MG Atenolol 25 mg DAILY PO 01/05/24 10:00 01/09/24 08:59 25 MG Fentanyl 25 mcg Q72HR TD 01/04/24 11:30 Gabapentin 100 mg TID PO 01/04/24 14:00 01/10/24 05:47 100 MG Lorazepam 1 mg TID PO 01/04/24 14:00 01/10/24 05:47 1 MG Duloxetine HCl 60 mg DAILY PO 01/05/24 10:00 Hold Patient Own Medication 1 tab DAILY PO 01/05/24 10:00 Hold Patient Own Medication 1 tab DAILY PO 01/05/24 10:00 Patient Own Medication 1 cap DAILY PO 01/05/24 10:00 Lisinopril 40 mg DAILY PO 01/05/24 10:00 01/09/24 08:59 40 MG Calcium Carbonate 500 mg BID PO 01/05/24 23:00 01/09/24 22:26 500 MG Hydrocortisone Sodium Succinate 50 mg DAILY IV 01/07/24 10:00 01/09/24 08:57 50 MG Hydromorphone HCl 0.5 mg Q4HPRN PRN IV 01/07/24 12:15 01/10/24 08:19 0.5 MG objective PUL CLEAR CV RR laboratory and microbiology Laboratory Tests 01/07/24 11:32 Test 01/07/24 11:32 Range/Units Serum Glucose 121 H 74-106 mg/dL Problem List SS COMPLEX HTN OBESITY RA CERVICAL AND LUMBER SPINAL STENOSIS DEGENERATIVE ARTHRITIS OF KNEE NOW WITH SEVERE PAIN INABILITY TO WALK Assessment/Plan CONSIDER STEROID THERAPY PAIN MANAGEMENT MRI LEFT KNEE AND SPINE/ COULD NOT BE DONE BECAUSE OF BILATERAL TKR MRI OF SPINE 1. Postsurgical changes as described. Mild 3 mm anterolisthesis at L4-5 and L5-S1. 2. No disc herniation or nerve root compression START PHYSICAL THERAPY PAIN MANAGEMENT MAY IMPLANTATION OF NERVE STIMULAOT OR PUMP Dietary Evaluation Review Comments: Continue current plan of care Expected Outcomes/Goals: F/U in 3-5 days Plan discussed with: Patient JAYSON SOLORZANO MD Jan 10, 2024 08:58
[2024-01-10] MEDS: HYDROmorphone HCL 2 MG/ML VL/or syr IV PRN (14:36)
--- NOTE | 2024-01-10 18:54 | DVHDS2 ---
Discharge Summary Date of Admission Jan 04, 2024 at 09:44 Date of Discharge: Jan 10, 2024 Labs/Diagnostic Data: Laboratory Results Test 01/07/24 11:32 01/05/24 04:57 01/04/24 06:40 White Blood Count 11.6 10^3/uL (4.4-10.8) Red Blood Count 4.16 10^6/uL (4.0-5.20) Hemoglobin 12.7 g/dL (12.2-16.2) Hematocrit 38.2 % (36.0-46.0) Mean Corpuscular Volume 91.7 fL (80.0-100.0) Mean Corpuscular Hemoglobin 30.5 pg (28.0-32.0) Mean Corpuscular Hemoglobin Concent 33.3 g/dL (32.0-36.0) Red Cell Distribution Width 13.7 % (11.8-14.3) Platelet Count 335 10^3/uL (140-450) Mean Platelet Volume 8.5 fL (6.9-10.8) Neutrophils (%) (Auto) 63.6 % (37.0-80.0) Lymphocytes (%) (Auto) 24.6 % (10.0-50.0) Monocytes (%) (Auto) 8.1 % (0.0-12.0) Eosinophils (%) (Auto) 3.4 % (0.0-7.0) Basophils (%) (Auto) 0.3 % (0.0-2.0) Neutrophils # (Auto) 7.4 10 ^3/uL (1.6-8.6) Lymphocytes # (Auto) 2.9 10 ^3/uL (0.4-5.4) Monocytes # (Auto) 0.9 10 ^3/uL (0-1.3) Eosinophils # (Auto) 0.4 10 ^3/uL (0-0.8) Basophils # (Auto) 0 10 ^3/uL (0-0.2) Nucleated Red Blood Cells 0.0 % Sodium Level 136 mmol/L (136-145) Potassium Level 4.0 mmol/L (3.5-5.1) Chloride Level 104 mmol/L (98-107) Carbon Dioxide Level 26 mmol/L (20-31) Anion Gap 6 (5-15) Blood Urea Nitrogen 16 mg/dL (9-23) Creatinine 0.93 mg/dL (0.550-1.02) Glomerular Filtration Rate Calc 63 mL/min (>90) BUN/Creatinine Ratio 17.2 (10.0-20.0) Serum Glucose 121 mg/dL (74-106) Calcium Level 9.8 mg/dL (8.7-10.4) Magnesium Level 2.0 mg/dL (1.6-2.6) Total Bilirubin 0.4 mg/dL (0.2-1.0) Aspartate Amino Transferase (AST) 12 U/L (13-40) Alanine Aminotransferase (ALT) < 9 U/L (7-40) Alkaline Phosphatase 97 U/L (46-116) Total Protein 6.6 g/dL (5.7-8.2) Albumin 3.8 g/dL (3.2-4.8) Urine Color Colorless (Yellow) Urine Clarity Clear (Clear) Urine pH 5.0 (5.0-9.0) Urine Specific [place] 1.009 (1.001-1.035) Urine Protein Negative (Negative) Urine Ketones Negative (Negative) Urine Blood Negative /uL (Negative) Urine Nitrite Negative (Negative) Urine Bilirubin Negative (Negative) Urine Urobilinogen Normal mg/dL (Negative) Urine Leukocyte Esterase Negative /uL (Negative) Urine RBC 1 /hpf (0 - 4) Urine WBC 2 /hpf (0 - 5) Urine Squamous Epithelial Cells Few /hpf (<5) Urine Bacteria None seen /hpf (None Seen) Urine Hyaline Casts Few /lpf (0 - 2) Urine Glucose Normal mg/dL (Normal) Other Laboratory Tests 01/07/24 11:32 Brief Hx & Hospital Course: 78 year old female patient with hx of RA and anxiety c/o uncontrolled pain. Patient has chronic pain. Patient was seeing pain management but she states her pain medication was not working and that she sought treatment in the emergency room. They did a harry scan on her and had no acute findings. Will observe overnight for 24 hours. Will continue with pain medication. Plan is for discharge tomorrow. Patient was admitted for intractable pain. Patient states she could not ambulate. Patient's PCP is Dr. Thompson. Patient also sees pain management outpatient. Patient states her pain was intolerable. Patient was started on IV steroids daily. Patient was seen by orthopedic surgeon Dr. Garcia who stated there was no surgical intervention needed. Patient was also seen by her PCP Dr. Thompson who recommended physical therapy and IV steroids. Patient's condition did improve. She was instructed to follow-up with her outpatient pain management and to seek possible steroid injections versus pain pump or neurostimulator. The patient received proper medical treatment and medications. Vital signs, Imaging and Laboratory Work was monitored daily. All consults recommendations were followed as provided. There were no complaints or new complaints upon discharge, all questions and concerns were answered. Patient was advised to return to the ER or call 911 if any headaches, dizziness, shortness of breath, chest pain, bleeding, fevers, or worsening of medical condition. Patient/Family was counseled about treatment plan, medications, possible side effects, patient verbalized understanding. All questions were answered to the best of my ability. The patient symptoms improved and they are okay to be DC. Condition at Discharge: Stable Final Diagnosis/Problems List Intractable pain- Sees pain management outpt- Needs to follow up for possile steroid injection or pain stimulator Benign essential HTN Morbid Obesity Anxiety Chronic pain syndrome Discharge Disposition: Home Discharge Instruct/Medications Diet: Cardiac 2g Na,low cholest Activity: No Restrictions, As Tolerated Follow Up/Referral: pcp 1 week Discharge Statement: "Patient was advised to return to the ER or call 911 if any headaches, dizziness, shortness of breath, chest pain, abdominal pain, bleeding, fevers, or worsening of medical condition. Patient was counseled about treatment plan, medications, possible side effects, patientverbalized understanding. All questions were answered to the best of my ability. This discharge took greater then 30 minutes in planning, reviewing documentation, counseling the patient, and discussing with other team members." ASSESSMENT ASSESSMENT Assessment Intractable pain- Sees pain management outpt- Needs to follow up for possile steroid injection or pain stimulator EBONI DYSON NP Jan 10, 2024 18:54
[2024-01-11] MEDS ORDERED: predniSONE 20 MG TAB PO SCH (10:00)
== END 2024-01-10 16:00 | disposition home or self-care (01) | DRG 554 ==
LOC: ER 04:35 → OVERFLOW 09:44 → EAST 23:45
PROVIDERS: ADMIT Nurse Practitioner; ATTEND Nurse Practitioner
DX: M12.9 Arthropathy, unspecified (principal); N17.9 Acute kidney failure, unspecified; Z68.41 Body mass index [BMI] 40.0-44.9, adult; G89.4 Chronic pain syndrome; I10 Essential (primary) hypertension; F41.9 Anxiety disorder, unspecified; E66.01 Morbid (severe) obesity due to excess calories; K21.9 Gastro-esophageal reflux disease without esophagitis; F32.A Depression, unspecified; Z96.653 Presence of artificial knee joint, bilateral; M43.16 Spondylolisthesis, lumbar region; Z88.5 Allergy status to narcotic agent; Z82.49 Family history of ischemic heart disease and other diseases of the circulatory system
CPT/HCPCS: 36415; 72148; 73030; 73562; 80048; 80053; 81001; 83735; 85025; 87081; 90656; 96374; 97116; 97163; 97530; G0378; J1885

== ENCOUNTER → 2024-02-16 | Outpatient (CLI) | payer MEDICARE | END | disposition home or self-care (01) | LOC: Rad HDHVI 14:18 | PROVIDERS: ATTEND Internal Medicine Cardiovascular Disease | DX: I11.0 Hypertensive heart disease with heart failure (principal); I50.33 Acute on chronic diastolic (congestive) heart failure | CPT/HCPCS: 93306 ==